=== PATIENT | female | born 1995 | race Caucasian/White ===

== ENCOUNTER 2018-04-06 12:47 | Emergency (ER) | payer OTHER ==
[2018-04-06 12:58] VITALS: BP 99/58; PULSE 78; TEMP 98.3; BMI 21.5
--- NOTE | 2018-04-06 15:42 | PDOC ---
Attending Attestation - Resident Resident Name: Etelvina Royal - ED Attending Attestation I have performed the following: I have examined & evaluated the patient, The case was reviewed & discussed with the resident, I agree w/resident's findings & plan, Exceptions are as noted - HPI HPI: 04/06/18 15:40 22y F no pmhx presents with 3 weeks of burning pain right lower quadrant radiationg to the back, associated with nausea/vomiting which had since resolved but still feeling mildly nauseus. Pt states the pain seems worse after eating and in the evenings. Notes she has been eating more healthy recently and does consume caffeine. pt dnies any fever/chills, dysuria, bpr, melena, hemetemesis, sob, cp. no recent travel or known sick contacts. she went to her PMD and was referred for an US but hasnt yet had it du to insurance issues. lmp mar 23 on exam general: no distress head: atraumatic abd soft nontender, no cmt, no rebound/guarding pulm: cta b/l card: rrr, no mrg ext: no edema neuro; no facial assymetry, moving all 4 ext spontaneously and symmetrically ddx: gall stones, kidney stones, pancreatitis, gastritis will ck labs, lipase will give pt some pepcid/maalox/zoofran US to r/o gall stones - Medical Decision Making 04/06/18 17:35 pts US is negative for acute pathology pt feels imrpoved suspect possible gastritis will give rx for H2 blockers, diet recommendations and have pt fu with PMD for reevaluation returnprecuautions were disucssed
--- NOTE | 2018-04-06 15:45 | PDOC ---
History of Present Illness - General Chief Complaint: Pain Stated Complaint: ABD PAIN Time Seen by Provider: 04/06/18 15:21 - History of Present Illness Initial Comments: 04/06/18 15:39 22 year old w/ no significant PMHX who presents with 3 weeks of intermittent R abdominal pain that is shooting to the R back. She notes that she initially had nausea and vomiting for the fist two weeks of pain, now only has pain. The pain is better when she leans forward and is worse after eating fatty foods. She is actively trying to get and is sexually active without protection. LNMP was 03/27/18. She denies any history of STD or PID. She denies pain with sexual activity. No other complaints at this time. PMHX: none PSHX: none Meds: multivitamin, Taty root supplement Allergies: noneTob: none Etoh: none Rec drugs: none Past History - Past Medical History Allergies/Adverse Reactions: Allergies Allergy/AdvReac Type Severity Reaction Status Date / Time No Known Allergies Allergy Verified 04/06/18 12:58 Home Medications: Ambulatory Orders Multivitamin [Poly-Vitamin] 1 each PO DAILY 04/06/18 COPD: No - Immunization History Immunization Up to Date: Yes - Suicide/Smoking/Psychosocial Hx Smoking History: Never smoked Have you smoked in the past 12 months: No Information on smoking cessation initiated: No Hx Alcohol Use: No Drug/Substance Use Hx: No Substance Use Type: None Review of Systems - Review of Systems Able to Perform ROS?: Yes Is the patient limited [place] proficient: No Constitutional: No: Chills, Fever HEENTM: No: Blurred Vision, Recent change in vision, Tinnitus Respiratory: No: Cough, Shortness of Breath Cardiac (ROS): No: Chest Pain, Palpitations, Chest Tightness ABD/GI: No: Constipated, Diarrhea, Nausea, Vomiting : No: Burning, Dysuria, Hematuria Musculoskeletal: Yes: Back Pain Neurological: No: Headache, Numbness, Paresthesia, Tingling *Physical Exam - Vital Signs Last Vital Signs Temp Pulse Resp BP Pulse Ox 98.3 F 78 16 99/58 100 04/06/18 12:56 04/06/18 12:56 04/06/18 12:56 04/06/18 12:56 04/06/18 12:56 - Physical Exam Comments: 04/06/18 17:20 GENERAL: Awake, alert, and fully oriented, in no acute distress HEAD: No signs of trauma, normocephalic, atraumatic EYES: EOMI, sclera anicteric, conjunctiva clear ENT: oropharynx clear without exudates. Moist mucosa NECK: Normal ROM, supple LUNGS: No distress, speaks full sentences, clear to auscultation bilaterally HEART: Regular rate and rhythm, normal S1 and S2, no murmurs, rubs or gallops, peripheral pulses normal and equal bilaterally. ABDOMEN: Soft, + RLQ tenderness, normoactive bowel sounds. No guarding, no rebound. No masses EXTREMITIES : Normal inspection, Normal range of motion, no edema. No clubbing or cyanosis. NEUROLOGICAL: Normal speech, normal gait, no focal sensorimotor deficits SKIN: Warm, Dry, normal turgor, no rashes or lesions noted ED Treatment Course - LABORATORY CBC & Chemistry Diagram: 04/06/18 16:00 04/06/18 16:00 Medical Decision Making - Medical Decision Making 04/06/18 17:21 22 year old w/ no significant PMHX who presents with 3 weeks of intermittent R abdominal pain that is shooting to the R back. Symptoms and history are concerning for cholelithiasis vs appendicitis vs pyelonephritis vs PID vs ectopic . Will assess for these etiologies. - CBC, CMP, UA, urine culture, Upreg Labs returned unremarkable *DC/Admit/Observation/Transfer Diagnosis at time of Disposition: Abdominal pain - Discharge Dispostion Disposition: HOME Condition at time of disposition: Guarded Decision to Admit order: No - Referrals Referrals: Linnette Magaña [Primary Care Provider] - - Patient Instructions Printed Discharge Instructions: DI for Gastroesophageal Reflux Disease (GERD), DI for Abdominal Pain-Adult Additional Instructions: You were seen in the ED for R sided abdominal pain. Blood work and ultrasound were done in the ED and did not show any significant findings. You did have relief of symptoms with zofran, pepcid and malox. We advise that you follow up with your primary care physician and take the prescription for pepcid that we are giving you today. - Post Discharge Activity
[2018-04-06] MEDS ORDERED: ONDANSETRON 4 MG/2 ML VIAL IVPB ONE (15:55)
[2018-04-06] MEDS ORDERED: FAMOTIDINE 20 MG/50 ML IVPB 20 MG in PREMIX 50 IVPB ONE (15:55)
[2018-04-06] MEDS ORDERED: MAG HYDROX/AL HYDROX/SIMETH -MYLANTA- ORAL SUSPENSION PO ONE (15:55)
[2018-04-06] MEDS ORDERED: ONDANSETRON 4 MG/2 ML VIAL ONE (16:01)
[2018-04-06] MEDS ORDERED: MAG HYDROX/AL HYDROX/SIMETH 30 ML UNIT-DOSE CUP ONE (16:01)
[2018-04-06] MEDS ORDERED: FAMOTIDINE 20 MG/50 ML IVPB 20 MG/50 ML MG IVPB ONE (16:01)
[2018-04-06 16:06] LABS: BASO % 0.4 % (0-2.0); EOS % 1.7 % (0-4.5); HEMATOCRIT 40.6 % (32.4-45.2); HEMOGLOBIN 13.7 GM/dL (10.7-15.3); LYMPH % 25.6 % (8-40); MCH 32.7 pg (25.7-33.7); MCHC 33.7 g/dl (32.0-36.0); MEAN CELL VOLUME 96.9 fl (80-96); MEAN PLT VOLUME 9.1 fl (7.5-11.1); MONO % 7.4 % (3.8-10.2); NEUT % 64.9 % (42.8-82.8); PLATELET COUNT 223 K/MM3 (134-434); RBC 4.19 M/mm3 (3.60-5.2); RDW 12.9 % (11.6-15.6); WHITE BLOOD COUNT 6.9 K/mm3 (4.0-10.0)
[2018-04-06 16:45] LABS: ALBUMIN 3.7 g/dl (3.4-5.0); ALK PHOS 64 U/L (45-117); ANION GAP 6 (8-16); BILIRUBIN,TOTAL 0.2 mg/dL (0.2-1.0); BLOOD UREA NITROGEN 11 mg/dL (7-18); CALCIUM 8.7 mg/dL (8.5-10.1); CHLORIDE 107 mmol/L (98-107); CO2 29 mmol/L (21-32); CREATININE 0.5 mg/dL (0.55-1.02); GLUCOSE,RANDOM 107 mg/dL (74-106); SGOT/AST 100 U/L (15-37); SGPT/ALT 53 U/L (12-78); SODIUM 142 mmol/L (136-145)
[2018-04-06 17:05] LABS: URINE APPEARANCE CLEAR; URINE BILIRUBIN NEGATIVE (<2.0 mg/dL); URINE COLOR YELLOW; URINE GLUCOSE (UA) NEGATIVE (NEGATIVE); URINE KETONE NEGATIVE (NEGATIVE); URINE LEUK ESTERASE NEGATIVE (NEGATIVE); URINE NITRITE NEGATIVE (NEGATIVE); URINE PROTEIN NEGATIVE (NEGATIVE); URINE UROBILINOGEN NEGATIVE mg/dL (0.2-1.0)
[2018-04-06 17:07] LABS: HCG,QUALITATIVE URINE NEGATIVE
[2018-04-06 17:21] LABS: EPI CELLS RARE /HPF (FEW)
== END 2018-04-06 18:27 | disposition home or self-care (01) ==
LOC: JER 12:47
PROC: 3E033GC Introduction of Other Therapeutic Substance into Peripheral Vein, Percutaneous Approach (ICD-10-PCS; principal; 2018-04-06)
PROC: 3E033GC Introduction of Other Therapeutic Substance into Peripheral Vein, Percutaneous Approach (ICD-10-PCS; 2018-04-06)
DX: R10.9 Unspecified abdominal pain (principal); M54.9 Dorsalgia, unspecified
CPT/HCPCS: 36415; 76705-TC; 80053; 81003; 81015; 83690; 84703; 85025; 96365; 96375; 99282-25

== ENCOUNTER 2018-08-27 19:32 | Emergency (ER) | payer OTHER ==
--- NOTE | 2018-08-27 19:44 | PDOC ---
Rapid Medical Evaluation Medical Evaluation: Allergies Allergy/AdvReac Type Severity Reaction Status Date / Time No Known Allergies Allergy Verified 04/06/18 12:58 08/27/18 19:39 I have performed a brief in-person evaluation of this patient. The patient presents with a chief complaint of: Body aches w/ b/l ear ache, sore throat x 2 days. No f/c Pertinent physical exam findings: Unremarkable I have ordered the following:nothing The patient will proceed to the ED for further evaluation Discharge Disposition - Diagnosis Viral syndrome - Referrals Referrals: Bird Valencia [Primary Care Provider] - - Patient Instructions - Post Discharge Activity
[2018-08-27 19:51] VITALS: PULSE 84; TEMP 98.6; BMI 21.5
--- NOTE | 2018-08-27 21:21 | PDOC ---
History of Present Illness - General Chief Complaint: Cold Symptoms Stated Complaint: COLD SYMPTOMS Time Seen by Provider: 08/27/18 19:47 - History of Present Illness Initial Comments: 08/27/18 21:18 23-year-old female with body aches and upper respiratory symptoms 1 day no comorbidities fully immunized Past History - Past Medical History Allergies/Adverse Reactions: Allergies Allergy/AdvReac Type Severity Reaction Status Date / Time No Known Allergies Allergy Verified 08/27/18 19:49 Home Medications: Ambulatory Orders NK [No Known Home Medication] 08/27/18 COPD: No - Immunization History Immunization Up to Date: Yes - Suicide/Smoking/Psychosocial Hx Smoking History: Never smoked Have you smoked in the past 12 months: No Hx Alcohol Use: No Drug/Substance Use Hx: No Substance Use Type: None Review of Systems - Review of Systems Constitutional: Yes: Chills, Malaise, Night Sweats HEENTM: Yes: Nose Congestion Respiratory: Yes: Cough *Physical Exam - Vital Signs Last Vital Signs Temp Pulse Resp BP Pulse Ox 98.6 F 84 16 101/36 L 100 08/27/18 19:49 08/27/18 19:49 08/27/18 19:49 08/27/18 19:49 08/27/18 19:49 - Physical Exam Comments: 08/27/18 21:20 HEAD: NC/AT EYES: Conjuntiva clear Ears: Canals and TM's normal NOSE: clear discharge THROAT: Moist mucous membrances, oral pharanx clear, uvula midline NECK: Supple without adenopathy CARDIAC: S1 S2 LUNGS: CTA Full and Equal breath sounds ABDOMEN: Soft NT ND MS: Full ROM in all joints without edema NEUROLOGIC: No gross sensory or motor deficits, NVID SKIN: Normal color and temperature no lesions or rashes Moderate Sedation - Procedure Monitoring Vital Signs: Procedure Monitoring Vital Signs Temperature 98.6 F 08/27/18 19:49 Pulse Rate 84 08/27/18 19:49 Respiratory Rate 16 08/27/18 19:49 Blood Pressure 101/36 L 08/27/18 19:49 O2 Sat by Pulse Oximetry (%) 100 08/27/18 19:49 *DC/Admit/Observation/Transfer Diagnosis at time of Disposition: Viral syndrome, Upper respiratory infection - Discharge Dispostion Disposition: HOME Condition at time of disposition: Stable Decision to Admit order: No - Referrals Referrals: Asabreann,Bird [Primary Care Provider] - - Patient Instructions Printed Discharge Instructions: DI for Viral Upper Respiratory Infection -- Adult Additional Instructions: Return to the emergency room should symptoms worsen or go unresolved. Please follow up with her primary care physician in one to 2 days for further evaluation and treatment options. Tylenol Motrin as directed for body aches and fever - Post Discharge Activity
[2018-08-27 22:02] VITALS: BP 121/55
== END 2018-08-27 22:02 | disposition home or self-care (01) ==
LOC: JERFT 19:32 → JER 19:32 → JERFT 22:02
DX: J06.9 Acute upper respiratory infection, unspecified (principal); B34.9 Viral infection, unspecified
CPT/HCPCS: 87804; 99281-25

== ENCOUNTER 2018-12-30 04:08 | Emergency (ER) | payer SELFPAY ==
--- NOTE | 2018-12-30 04:14 | PDOC ---
History of Present Illness - General Stated Complaint: PALPATATIONS Time Seen by Provider: 12/30/18 04:14 History Source: Patient Exam Limitations: No Limitations - History of Present Illness Initial Comments: 23 yo F w a pmh of a hiatal hernia presents to the ER with acute onset palpitations, shortness of breath and right sided chest pain which began tonight around 9 pm when she took an energy supplement prior to going to the gym. She says she doesn't know the exact name of the supplement but she didn't come to the hospital originally bc she thought the discomfort would go away. She says it has been getting mildly worse since it began. She worked out her legs at the gym tonight and did no upper body workouts. She says she has been feeling nauseous all night as well and felt like she wanted to vomit but did not actually vomit. She also thinks she has been more sweaty than usual this evening. She reports that she also experienced 3 episodes of watery diarrhea today as well. LMP: end of November - The patient is sexually active with one male and does not use any form of contraception. She denies using condoms and says she is not on any form of control. She has not been tested for gonorrhea or chlamydia in many years and would like to be tested here tonight. PCP: Bird Valencia PSH: None reported Social Hx: Denies drinking, smoking, or other substance usage. Allergies: NKA, NKDA Past History - Past Medical History Allergies/Adverse Reactions: Allergies Allergy/AdvReac Type Severity Reaction Status Date / Time No Known Allergies Allergy Verified 12/30/18 04:21 Home Medications: Ambulatory Orders NK [No Known Home Medication] 08/27/18 COPD: No - Immunization History Immunization Up to Date: Yes - Suicide/Smoking/Psychosocial Hx Smoking History: Never smoked Have you smoked in the past 12 months: No Hx Alcohol Use: No Drug/Substance Use Hx: No Substance Use Type: None Review of Systems - Review of Systems Able to Perform ROS?: No Comments:: CONSTITUTIONAL: Absent: fever, no chills, no fatigue EYES: Absent: visual changes ENT: Absent: ear pain, no sore throat CARDIOVASCULAR: Present: Palpitations, chest pain RESPIRATORY: Present: SOB Absent: cough GI: Present: Nausea, diarrhea Absent: abdominal pain, no vomiting, no constipation GENITOURINARY: Absent: dysuria, no frequency, no hematuria MUSKULOSKELETAL: Absent: back pain, no arthralgia, no myalgia SKIN: Absent: rash NEURO: Absent: headache *Physical Exam - Physical Exam Comments: GENERAL: Well-appearing, well-nourished. No apparent distress. HEENT: Normocephalic, atraumatic. PERRL, EOM intact. CARDIOVASCULAR: Tachycardic rate. Normal S1, S2. Regular rhythm. PULMONARY: No evidence of respiratory distress. Lungs clear to auscultation bilaterally. ABDOMEN: Soft, non-distended, non-tender. EXTREMITIES: Normal ROM in all four extremities. No gross deformities. SKIN: Warm, dry. No rash NEUROLOGICAL: No focal neurological deficits. ED Treatment Course - LABORATORY CBC & Chemistry Diagram: 12/30/18 04:42 12/30/18 04:42 Medical Decision Making - Medical Decision Making 23 yo F w a pmh of a hiatal hernia presents to the ER with acute onset palpitations, shortness of breath and right sided chest pain which began tonight around 9 pm when she took an energy supplement prior to going to the gym. She says she doesn't know the exact name of the supplement but she didn't come to the hospital originally bc she thought the discomfort would go away. She says it has been getting mildly worse since it began. She worked out her legs at the gym tonight and did no upper body workouts. She says she has been feeling nauseous all night as well and felt like she wanted to vomit but did not actually vomit. She also thinks she has been more sweaty than usual this evening. She reports that she also experienced 3 episodes of watery diarrhea today as well. LMP: end of November - The patient is sexually active with one male and does not use any form of contraception. She denies using condoms and says she is not on any form of control. She has not been tested for gonorrhea or chlamydia in many years and would like to be tested here tonight. VS: Tachycardic, otherwise wnl DDx IBNLT: Work out supplement related effect, ACS/SC, pneumothorax, PNA, MSK chest pain, gastroenteritis, costochondritis Plan: Labs, Urine, Ekg, CXR, IV hydration, zofran, re-assess. Patient no longer feels nauseous or has shortness of breath. CXR unremarkable. EKG normal sinus Labs normal. Will DC patient with supportive care, PCP fu, and return precautions. Sending urine sample for patient for gonorrea and chlamydia - Patient notified she will get a call back in 4 days time with results. *DC/Admit/Observation/Transfer Diagnosis at time of Disposition: Palpitations - Discharge Dispostion Disposition: HOME Condition at time of disposition: Stable Decision to Admit order: No - Referrals Referrals: Bird Valencia [Primary Care Provider] - - Patient Instructions Printed Discharge Instructions: DI for Palpitations Additional Instructions: You came into the ER with palpitations. This was likely a side effect of your energy supplement. Please try to limit taking these supplements in the future. Drink plenty of fluids. Take motrin/ibuprofen/advil as needed for pain control. Please make sure to schedule a follow up appointment with your primary care doctor in the next 3 to 5 days to make sure you are getting better. Come back to the ER if your pain worsens, you have shortness of breath or difficulty breathing, or have any other new or worsening concerns. Thank you for coming to the [facility] ER. We hope you feel better soon! Print Language: GABONESE - Post Discharge Activity
[2018-12-30 04:21] VITALS: BP 123/82; TEMP 98.5; BMI 21.5
--- NOTE | 2018-12-30 04:32 | PDOC ---
Attending Attestation - Resident Resident Name: Marcelo Mark - ED Attending Attestation I have performed the following: I have examined & evaluated the patient, The case was reviewed & discussed with the resident, I agree w/resident's findings & plan, Exceptions are as noted - HPI HPI: 12/30/18 05:21 23y F no pmhx presents with complaint of palpitations .Pt states she was using a pre workout energy drink, and then since then has been feeling palptiations in her chest. Also endorses couple of episoes of diarrhea. Pt notes some nausea earlier that resolved. Pt julian any current cp, sob, lightheadedness, no melena /bpr, dysuria, frequency, abd pain, back pain. No trauma. Pt has had this energy drink in the past and has had palpitations but resolved spontenously. On exam: Genera: no acute distress HEENT: dry mucus membranes PULM: CTA b/l, no wheezing/rales Card: slightly tachycardic, no murmers suspect dehydration combined with stimulants in the energy drink will give fluids will ck basic labs to r/o anemia, metabolic dernagements ekg to screen for arrthima - Physicial Exam PE: 01/01/19 07:22 see above - Medical Decision Making 01/01/19 07:22 see abve Heart Score/ECG Review - ECG Impressions Comment:: 12/30/18 05:26 Twelve-lead EKG was performed and reviewed by me. There is normal sinus rhythm with a normal rate. Rate of 96 The axis is normal. The intervals are normal. There is normal R wave progression There are no ST or T wave abnormalities. Impression: Normal twelve-lead EKG
[2018-12-30] MEDS ORDERED: ONDANSETRON 4 MG/2 ML VIAL IVPUSH ONE (04:38)
[2018-12-30] MEDS ORDERED: IBUPROFEN 400 MG TABLET (FP) PO ONE ×2 (04:38→04:57)
[2018-12-30] MEDS ORDERED: SODIUM CHLORIDE 0.9% 500 ML INFUS.BAG IV ONE (04:38)
[2018-12-30 04:51] LABS: BASO % 0.4 % (0-2.0); EOS % 0.1 % (0-4.5); HEMATOCRIT 40.1 % (32.4-45.2); HEMOGLOBIN 13.8 GM/dL (10.7-15.3); LYMPH % 18.2 % (8-40); MCH 33.7 pg (25.7-33.7); MCHC 34.5 g/dl (32.0-36.0); MEAN CELL VOLUME 97.6 fl (80-96); MEAN PLT VOLUME 9.1 fl (7.5-11.1); MONO % 7.1 % (3.8-10.2); NEUT % 74.2 % (42.8-82.8); PLATELET COUNT 242 K/MM3 (134-434); RBC 4.11 M/mm3 (3.60-5.2); RDW 12.9 % (11.6-15.6)
[2018-12-30 04:55] LABS: HCG,QUALITATIVE URINE Negative
[2018-12-30] MEDS ORDERED: ONDANSETRON 4 MG/2 ML VIAL ONE (04:57)
[2018-12-30 05:08] LABS: URINE APPEARANCE CLEAR; URINE BILIRUBIN NEGATIVE (NEGATIVE); URINE COLOR YELLOW; URINE GLUCOSE (UA) NEGATIVE (NEGATIVE); URINE KETONE 1+ (NEGATIVE); URINE LEUK ESTERASE NEGATIVE (NEGATIVE); URINE NITRITE NEGATIVE (NEGATIVE); URINE PROTEIN NEGATIVE (NEGATIVE); URINE UROBILINOGEN 0.2 mg/dL (0.2-1.0)
[2018-12-30 05:20] LABS: ALBUMIN 4.2 g/dl (3.4-5.0); ALK PHOS 83 U/L (45-117); ANION GAP 6 MMOL/L (8-16); BILIRUBIN,TOTAL 0.3 mg/dL (0.2-1); BLOOD UREA NITROGEN 10 mg/dL (7-18); CALCIUM 8.8 mg/dL (8.5-10.1); CHLORIDE 106 mmol/L (98-107); CO2 24 mmol/L (21-32); CREATININE 0.6 mg/dL (0.55-1.3); GLUCOSE,RANDOM 99 mg/dL (74-106); POTASSIUM 4.2 mmol/L (3.5-5.1); SGOT/AST 34 U/L (15-37); SGPT/ALT 29 U/L (13-61); SODIUM 136 mmol/L (136-145)
[2018-12-30 05:44] VITALS: PULSE 94
--- NOTE | 2018-12-30 11:09 | EKG ---
Test Reason : Blood Pressure : / mmHG Vent. Rate : 097 BPM Atrial Rate : 100 BPM P-R Int : 134 ms QRS Dur : 076 ms QT Int : 338 ms P-R-T Axes : 000 074 044 degrees QTc Int : 429 ms NORMAL SINUS RHYTHM NORMAL ECG NO PREVIOUS ECGS AVAILABLE Confirmed by MD Montserrat, Henrique ([id number]) on 12/30/2018 11:08:56 AM Referred By: Osman REEVES Confirmed By:Henrique Mariano MD
== END 2018-12-30 06:18 | disposition home or self-care (01) ==
LOC: JER 04:08
DX: R00.2 Palpitations (principal); Z11.3 Encounter for screening for infections with a predominantly sexual mode of transmission
CPT/HCPCS: 36415; 71046-TC-FY; 80053; 81003; 84484; 84703; 85025; 87491; 87591; 93005; 93010; 99284-25

== ENCOUNTER 2019-04-07 15:25 | Emergency (ER) | payer SELFPAY ==
[2019-04-07 15:31] VITALS: BMI 21.9
[2019-04-07] MEDS ORDERED: ONDANSETRON 4 MG/2 ML VIAL IVPUSH ONE (16:09)
[2019-04-07] MEDS ORDERED: SODIUM CHLORIDE 0.9% 500 ML INFUS.BAG IV ONE (16:09)
--- NOTE | 2019-04-07 16:13 | PDOC ---
History of Present Illness - General Chief Complaint: Pain Stated Complaint: ABD PAIN - History of Present Illness Initial Comments: Germaine Garcia is a 23yo otherwise healthy woman who presents reporting painful menstrual cramps. She states that on the first day of her period, she always has severe cramps and often vomiting and headache. Today she reports that she has 8/10 pain as well as 4 episodes of NBNB vomiting this morning. She says that if she takes ibuprofen her symptoms resolve completely, but she did not have any at home. She was walking to the store to buy Advil when she started to feel as though she was going to fall, at which point she called an ambulance. Ms Garcia states that her pain is 8/10, across her lower abdomen, and identical to her normal menstrual cramps. She denies heavy vaginal bleeding, other vaginal discharge, fever, chills, diarrhea, upper abdominal pain, back pain or other recent symptoms. She is not currently sexually active, though has been in the past, and does not believe she could be currently. She has no concerns for STI's. Past History - Past Medical History Allergies/Adverse Reactions: Allergies Allergy/AdvReac Type Severity Reaction Status Date / Time No Known Allergies Allergy Verified 04/07/19 15:29 Home Medications: Ambulatory Orders NK [No Known Home Medication] 08/27/18 COPD: No - Immunization History Immunization Up to Date: Yes - Suicide/Smoking/Psychosocial Hx Smoking History: Never smoked Have you smoked in the past 12 months: No Hx Alcohol Use: No Drug/Substance Use Hx: No Substance Use Type: None Review of Systems - Review of Systems Comments:: General: No fevers, no chills, no weight or appetite change, no malaise HEENT: No changes in vision, no changes in hearing, no congestion, no sore throat CV: No chest pain, no palpitations, no LE edema Pulm: No SOB, no cough, no wheezing GI: No nausea or vomiting, no change in bowel habits, no melena : No frequency, no urgency, no dysuria. See HPI Musc: No back pain, no joint swelling, no recent injury Skin: No rash, no lesions, no erythema Endo: No excessive thirst, no heat/cold intolerance Heme: No unusual bruising or bleeding, no swollen glands Neuro: No syncope, no numbness/tingling, no focal weakness Vasc: No claudication Psych: No recent change in mood, no SI or HI *Physical Exam - Vital Signs Last Vital Signs Temp Pulse Resp BP Pulse Ox 78 18 106/60 100 04/07/19 15:30 04/07/19 15:30 04/07/19 15:30 04/07/19 15:30 - Physical Exam Comments: General: Comfortable, no acute distress HEENT: PERRL, EOMI, MMM, voice normal Cards: RRR, no murmur appreciated Pulm: Comfortable on room air, clear to auscultation bilaterally Abd: Soft, nontender, nondistended : Normal external genitalia, moderate dark blood in vaginal canal w/o clots, discomfort with exam but no focal adnexal or cervical motion tenderness. Os closed. Ext: Atraumatic. No LE edema. ROM intact Vasc: Extremities WWP Skin: Normal color, no rashes or lesions Neuro: A&Ox3, CN grossly intact, normal speech, motor/sensory grossly intact and symmetric Psych: Mood appropriate to situation ED Treatment Course - LABORATORY CBC & Chemistry Diagram: 04/07/19 16:50 04/07/19 16:50 Medical Decision Making - Medical Decision Making 04/07/19 16:10 Germaine Garcia is a 23yo otherwise healthy woman who presents reporting painful menstrual cramps, typical of her normal cramps. She presented to the ED as she states that they normally resolve with ibuprofen, but she did not have any at home and was afraid she would fall due to the pain. She does not believe she is but is not sure. - Most likely menstrual cramps, but cannot exclude ectopic , ovarian pathology, early miscarriage, PID. Less likely UTi - CBC, CMP, UA, urine preg, urine culture, GC/chlamydia - 1L NS, zofran. Toradol pending negative test 04/07/19 17:26 - UA negative - negative - Toradol ordered for pain - remainder of labs pending 04/07/19 18:17 - Labs unremarkable, slight leukocytosis could be reactive as she reports vomiting - Requesting to be discharged, will give OB follow up. Discharge instructions written by Dr Gomez, please see separate note. Discussed with Dr Kaykay Sewell PGY2 *DC/Admit/Observation/Transfer Diagnosis at time of Disposition: Vaginal bleeding Abdominal pain Qualifiers: Abdominal location: lower abdomen, unspecified Qualified Code(s): R10.30 - Lower abdominal pain, unspecified - Discharge Dispostion Condition at time of disposition: Stable Decision to Admit order: No - Referrals Schedule a call back: Please call Referrals: Clifton Looney MD [Staff Physician] - - Patient Instructions Printed Discharge Instructions: DI for Vaginal Bleeding Additional Instructions: 1) Please follow-up with your primary care doctor in the next 2-3 days. Please call tomorrow to schedule a follow up appointment. If you cannot follow up with your doctor within 1 week please return to the Emergency Department for any urgent issues. 2) Your laboratory results were normal here in the ER. Please make sure you follow up with your [employer] physician. 3) If you have any worsening of symptoms or any other concerns please return to the ER immediately. Return if worsening symptoms including fevers, headache, vomiting, visual or hearing disturbances, abdominal pain, chest pain, shortness of breath, syncope, dehydration, inability to take things by mouth/vomiting, altered mental status, or worsening concerning symptoms. 4) Please continue taking your home medications as directed. Side effects may include upset stomach, abdominal pain, vomiting, or diarrhea. Do not drink alcohol with your medications. - Post Discharge Activity
[2019-04-07] MEDS ORDERED: ONDANSETRON 4 MG/2 ML VIAL ONE (16:58)
[2019-04-07 17:09] LABS: BASO % 0.1 % (0-2.0); EOS % 0.1 % (0-4.5); HEMATOCRIT 42.2 % (32.4-45.2); LYMPH % 6.5 % (8-40); MCH 32.8 pg (25.7-33.7); MCHC 33.2 g/dl (32.0-36.0); MEAN CELL VOLUME 98.7 fl (80-96); MEAN PLT VOLUME 9.1 fl (7.5-11.1); MONO % 4.9 % (3.8-10.2); NEUT % 88.4 % (42.8-82.8); PLATELET COUNT 249 K/MM3 (134-434); RBC 4.27 M/mm3 (3.60-5.2); RDW 13.1 % (11.6-15.6); WHITE BLOOD COUNT 13.5 K/mm3 (4.0-10.0)
[2019-04-07 17:11] LABS: EPI CELLS 5.3 /HPF (0-5/HPF); HYALINE CASTS 9 /lpf (0-8); PH,URINE 7.5 (5.0-8.0); URINE APPEARANCE CLEAR; URINE BACTERIA 37.1 /hpf (NEGATIVE); URINE BILIRUBIN NEGATIVE (NEGATIVE); URINE COLOR YELLOW; URINE GLUCOSE (UA) NEGATIVE (NEGATIVE); URINE KETONE 3+ (NEGATIVE); URINE LEUK ESTERASE NEGATIVE (NEGATIVE); URINE NITRITE NEGATIVE (NEGATIVE); URINE PROTEIN NEGATIVE (NEGATIVE); URINE RBC 3 /hpf (0-4); URINE WBC 1 /hpf (0-5)
[2019-04-07] MEDS ORDERED: KETOROLAC TROMETHAMINE 30 MG/1 ML VIAL IVPUSH ONE (17:29)
[2019-04-07 17:36] LABS: ALBUMIN 4.1 g/dl (3.4-5.0); BILIRUBIN,TOTAL 0.4 mg/dL (0.2-1); BLOOD UREA NITROGEN 10.9 mg/dL (7-18); CALCIUM 8.9 mg/dL (8.5-10.1); CREATININE 0.7 mg/dL (0.55-1.3); POTASSIUM 3.6 mmol/L (3.5-5.1); TOT PROT 7.5 g/dl (6.4-8.2)
--- NOTE | 2019-04-07 18:04 | PDOC ---
*Physical Exam - Vital Signs Last Vital Signs Temp Pulse Resp BP Pulse Ox 78 18 106/60 100 04/07/19 15:30 04/07/19 15:30 04/07/19 15:30 04/07/19 15:30 ED Treatment Course - LABORATORY CBC & Chemistry Diagram: 04/07/19 16:50 04/07/19 16:50 - ADDITIONAL ORDERS Additional order review: Laboratory Results 04/07/19 04/07/19 04/07/19 16:50 16:50 16:50 Sodium 139 Potassium 3.6 Chloride 108 H Carbon Dioxide 24 Anion Gap 7 L BUN 10.9 Creatinine 0.7 Est GFR (CKD-EPI)AfAm 141.54 Est GFR (CKD-EPI)NonAf 122.12 Random Glucose 91 Calcium 8.9 Total Bilirubin 0.4 AST 12 L ALT 18 Alkaline Phosphatase 70 Total Protein 7.5 Albumin 4.1 Urine Color Yellow Urine Appearance Clear Urine pH 7.5 D Ur Specific [place] 1.027 Urine Protein Negative Urine Glucose (UA) Negative Urine Ketones 3+ H Urine Blood 3+ H Urine Nitrite Negative Urine Bilirubin Negative Urine Urobilinogen 1.0 Ur Leukocyte Esterase Negative Urine WBC (Auto) 1 Urine RBC (Auto) 3 Urine Casts (Auto) 9 U Epithel Cells (Auto) 5.3 Urine Bacteria (Auto) 37.1 Urine HCG, Qual Negative 04/07/19 16:50 RBC 4.27 MCV 98.7 H MCHC 33.2 RDW 13.1 MPV 9.1 Neutrophils % 88.4 H Lymphocytes % 6.5 L D Monocytes % 4.9 Eosinophils % 0.1 Basophils % 0.1 - Medications Given in the ED: ED Medications Discontinued Medications Generic Name Dose Route Start Last Admin Trade Name Freq PRN Reason Stop Dose Admin Ondansetron HCl 4 mg 04/07/19 16:09 04/07/19 17:02 Zofran Injection IVPUSH 04/07/19 16:10 4 mg ONCE ONE Administration Sodium Chloride 1,000 ml 04/07/19 16:09 04/07/19 17:10 Normal Saline - IV 04/07/19 16:10 1,000 ml ONCE ONE Administration *DC/Admit/Observation/Transfer Diagnosis at time of Disposition: Vaginal bleeding Abdominal pain Qualifiers: Abdominal location: unspecified location Qualified Code(s): R10.9 - Unspecified abdominal pain - Discharge Dispostion Disposition: HOME Condition at time of disposition: Stable Decision to Admit order: No - Referrals Referrals: Clifton Looney MD [Staff Physician] - - Patient Instructions Printed Discharge Instructions: DI for Vaginal Bleeding Additional Instructions: 1) Please follow-up with your primary care doctor in the next 2-3 days. Please call tomorrow to schedule a follow up appointment. If you cannot follow up with your doctor within 1 week please return to the Emergency Department for any urgent issues. 2) Your laboratory results were normal here in the ER. Please make sure you follow up with your [facility] [employer] physician. 3) If you have any worsening of symptoms or any other concerns please return to the ER immediately. Return if worsening symptoms including fevers, headache, vomiting, visual or hearing disturbances, abdominal pain, chest pain, shortness of breath, syncope, dehydration, inability to take things by mouth/vomiting, altered mental status, or worsening concerning symptoms. 4) Please continue taking your home medications as directed. Side effects may include upset stomach, abdominal pain, vomiting, or diarrhea. Do not drink alcohol with your medications. - Post Discharge Activity
[2019-04-07] MEDS ORDERED: KETOROLAC TROMETHAMINE 30 MG/1 ML VIAL ONE (18:09)
[2019-04-07 18:24] VITALS: BP 105/58; PULSE 86
--- NOTE | 2019-04-07 18:58 | PDOC ---
Documentation entered by Luis Motley SCRIBE, acting as scribe for Rosibel Mccracken MD. Rosibel Mccracken MD: This documentation has been prepared by the rigoibe, Luis Motley SCRIBE, under my direction and personally reviewed by me in its entirety. I confirm that the documentation accurately reflects all work, treatment, procedures, and medical decision making performed by me. Attending Attestation - Resident Resident Name: Flora Sewell - HPI HPI: 04/07/19 17:53 The patient is a 23 year old female with no significant past medical history who presents to the emergency department with painful menstrual cramps today. The patient states that she started the first day of her period with severe cramps and often vomiting and headaches he reports that she has 8/10 pain as well as 4 episodes of NBNB vomiting this morning. She says that if she takes ibuprofen her symptoms resolve completely, but she did not have any at home. She was walking to the store to buy Advil when she started to feel as though she was going to fall, at which point she called an ambulance. She denies any sexually activity or possible . The patient denies any other symptoms or complaints. - Physicial Exam PE: 04/07/19 17:53 GENERAL: Awake, alert, and fully oriented, in no acute distress HEAD: No signs of trauma EYES: PERRLA, EOMI, sclera anicteric, conjunctiva clear ENT: Auricles normal inspection, hearing grossly normal, nares patent, oropharynx clear without exudates. Moist mucosa NECK: Normal ROM, supple, no lymphadenopathy, JVD, or masses LUNGS: Breath sounds equal, clear to auscultation bilaterally. No wheezes, and no crackles HEART: Regular rate and rhythm, normal S1 and S2, no murmurs, rubs or gallops ABDOMEN: Soft, nontender, normoactive bowel sounds. No guarding, no rebound. No masses EXTREMITIES: Normal range of motion, no edema. No clubbing or cyanosis. No cords, erythema, or tenderness NEUROLOGICAL: Cranial nerves II through XII grossly intact. Normal speech, normal gait SKIN: Warm, Dry, normal turgor, no rashes or lesions noted. - Medical Decision Making 04/07/19 18:28 Pt presents to the ED complaining of pelvic pain that is similar to, but worse than, her chronic menstrual pain. Also complains of several episodes of nausea and vomiting today. Pelvic exam is unremarkable. Symptoms are completely resolved after toradol and zofran. Abdomen is non tender. Most likely dysmenorrhea. Will discharge home. 04/07/19 18:37
== END 2019-04-07 18:40 | disposition home or self-care (01) ==
LOC: JER 15:25
PROC: 3E033GC Introduction of Other Therapeutic Substance into Peripheral Vein, Percutaneous Approach (ICD-10-PCS; principal; 2019-04-07)
PROC: 3E0337Z Introduction of Electrolytic and Water Balance Substance into Peripheral Vein, Percutaneous Approach (ICD-10-PCS; 2019-04-07)
DX: N93.9 Abnormal uterine and vaginal bleeding, unspecified (principal); R10.30 Lower abdominal pain, unspecified
CPT/HCPCS: 36415; 80053; 81003; 84703; 85025; 87077; 87086; 87491; 87591; 99283-25

== ENCOUNTER 2020-07-01 07:18 | Emergency (ER) | payer OTHER ==
[2020-07-01 07:29] VITALS: TEMP 98.6; BMI 21.9
--- NOTE | 2020-07-01 07:47 | PDOC ---
History of Present Illness - General Chief Complaint: Allergic Reaction Stated Complaint: ALLERGIC REACTION Time Seen by Provider: 07/01/20 07:47 - History of Present Illness Initial Comments: 07/01/20 07:47 HPI: This is a 25 y/o female with no PMH presenting the ED complaining of a diffuse itchy rash, throat tightness, and lower lip swelling that woke her up from sleep this morning. She denies any allergies, or any previous allergic reactions. States that she ate yogurt, cracker, and a banana 7 hours ago and went to sleep feeling fine. None of those foods are new except for the yogurt that she has been eating for the past two weeks. She also went to [facility] yesterday for an unrelated issue, but denies being given any medications while she was there. She denies any new products, shortness of breath, pooling of saliva, lightheadedness, or chest pain. ROS: GENERAL/CONSTITUTIONAL: No fever/chills, diaphoresis, or weakness. HEENT: No change in vision. No itchy watery eyes. Yes throat tightness CARDIOVASCULAR: No chest pain, palpitations or peripheral edema RESPIRATORY: No shortness of breath, dyspnea with exertio, wheezing, or chest ti ghtness GASTROINTESTINAL: No abdominal pain, nausea, vomiting GENITOURINARY: No dysuria, frequency MUSCULOSKELETAL: No joint or muscle swelling or pain. SKIN: Diffuse itchy maculopapular rash. Lower lip swelling NEUROLOGIC: No headache, vertigo, focal weakness, loss of consciousness, or change in strength/sensation. HEMATOLOGIC/LYMPHATIC: No anemia, easy bleeding, or history of blood clots. PMH: Denied PSx: Denied Social Hx: Denied etoh, tobacco, drug use Meds: See nurse note Allergies: See nurse note PE: GENERAL: Awake, alert, and fully oriented, in no acute distress. Patient is laying in bed, non-toxic. Patient is not in respiratory distress. She is able to speak in full sentences. HEENT: Normocephalic, atraumatic. PERRLA, EOMI. No conjunctival pallor. Moist mucous membranes. No visible oropharyngeal swelling. Lower lip edema. NECK: Normal ROM and supple. No lymphadenopathy, JVD, or masses. CARDIOVASCULAR: Regular rate and rhythm, normal S1 and S2, no murmurs, rubs or gallops PULMONARY: No respiratory distress. Breath sounds equal, clear to auscultation bilaterally. No wheezes, rales or rhonchi. ABDOMEN: Soft, nontender, normoactive bowel sounds. EXTREMITIES: Normal range of motion, no edema NEUROLOGICAL: Cranial nerves II through XII grossly intact. Normal speech. SKIN: Warm, Dry, normal turgor. Maculopapular rash on forehead, upper back, arms, abdomen, thighs. MDM: 07/01/20 08:10 This is a 25 y/o female with no PMH presenting the ED complaining of a diffuse itchy rash, throat tightness, and lower lip swelling that woke her up from sleep this morning. - No respiratory distress. Patient is saturating at 98% on room air. - Hemodynamically stable. - No known allergies. No new foods, medications, products - Given lip and throat involvement will administer methylprednisolone as well as benadryl and famotidine. Vital Signs Temp Pulse Resp BP Pulse Ox 98.6 F 90 18 115/65 100 07/01/20 07:25 07/01/20 07:25 07/01/20 07:25 07/01/20 07:25 07/01/20 07:25 07/01/20 08:45 - Patient reports improvement in symptoms. - Asking for food. 07/01/20 09:00 - Lungs CTA bilaterally - Rash improved. No longer with lower lip swelling. - Patient remained hemodynamically stable throughout ED stay. - Patient stable to d/c with referral for lead data entry operator, PCP, and return precautions. - 50mg prednisone x3 days and epipen sent to pharmacy. Patient understands how to use the epipen. Past History - Medical History Allergies/Adverse Reactions: Allergies Allergy/AdvReac Type Severity Reaction Status Date / Time No Known Allergies Allergy Verified 07/01/20 07:24 Home Medications: Ambulatory Orders EPINEPHrine (EPI-PEN 0.3MG) [Epipen 0.3MG -] 0.3 mg IM ASDIR #2 pens 07/01/20 Prednisone [Prednisone 50 MG TABLETS] 50 mg PO DAILY #3 tablet 07/01/20 COPD: No - Reproductive History Is Patient Now?: No - Immunization History Immunization Up to Date: Yes - Psycho-Social/Smoking History Smoking History: Never smoked Have you smoked in the past 12 months: No - Substance Abuse Hx (Audit-C & DAST Scrn) How often the patient has a drink containing alcohol: Never Score: In Men: 4 or > Positive; In Women: 3 or > Positive: 0 Screen Result (Pos requires Nsg. Audit-10AR): Negative In the last yr the pt used illegal drug/Rx for NonMed reason: No Score: Yes response is considered Positive: 0 Screen Result (Positive result requires Nsg. DAST-10): Negative *Physical Exam - Vital Signs Last Vital Signs Temp Pulse Resp BP Pulse Ox 98.6 F 90 18 115/65 100 07/01/20 07:25 07/01/20 07:25 07/01/20 07:25 07/01/20 07:25 07/01/20 07:25 Discharge - Discharge Information Problems reviewed: Yes Clinical Impression/Diagnosis: Rash, Lip swelling Allergic reaction Qualifiers: Encounter type: initial encounter Qualified Code(s): T78.40XA - Allergy, unspecified, initial encounter Disposition: HOME - Additional Discharge Information Prescriptions: EPINEPHrine (EPI-PEN 0.3MG) [Epipen 0.3MG -] 0.3 mg IM ASDIR #2 pens Prednisone [Prednisone 50 MG TABLETS] 50 mg PO DAILY #3 tablet - Follow up/Referral Referrals: [facility] [Provider Group] Juvnecio Grace MD [Staff Physician] - Jonny Joiner MD [Staff Physician] - Jordin Gómez MD [Staff Physician] - - Patient Discharge Instructions Additional Instructions: Please follow-up with your primary doctor(s) within 2-3 days. We recommend you see an [facility] Walker - we have given you a list of allergists (check with your insurance before making any appointments). We have also referred you to the [facility] so you can establish yourself with a primary care physician. We have sent a prescription for an Epi-Pen to your pharmacy. Please pick it up as soon as possible. Always carry this with you. In the Emergency Department today, we spoke about how to use the Epi-Pen only in the event of a severe allergic reaction with trouble breathing or throat swelling. You must go to the hospital right away if you ever use the Epi-Pen. Remember that they every year so you should have your doctor write a new prescription yearly We have sent a prescription for prednisone to your pharmacy. Please pick it up as soon as possible and use as directed (50mg once daily for 3 more days). Take Benadryl (also called diphenhydramine) 25mg every 6-8 hours as needed for further allergy symptoms (can be purchased without a prescription) - please note that Benadryl often causes drowsiness so please do not drive, make important decisions or operate machinery until you know how it will affect you. Please return to the Emergency Department right away if you have any worsening or new shortness of breath, changes in your voice, tightness/itching in your mouth/throat, swelling, severe hives, chest pain, high fever. There is a very small chance of a recurrence of the allergic reaction, typically in the next 24 hours. If you see the same symptoms (rash, trouble breathing, vomiting, etc) return, come back to the Emergency Department immediately. - Post Discharge Activity
--- OUTSIDE RECORDS SUMMARY | 2020-07-01 07:53 | XMS ---
:1995 Author Organization [facility] Care Team Providers Name Role Phone ED STAFF PHYSICIANBRIAN Unavailable Unavailable PALLI HASEEB Byrd Unavailable Unavailable ED STAFF PHYSICIAN Unavailable Unavailable ED STAFF PHYSICIAN, STAFF Unavailable Unavailable KAYLAN KRAMER Unavailable KAYALN KRAMER Unavailable ED STAFF PHYSICIANJAHAIRA Unavailable Unavailable ED STAFF PHYSICIANKIRAN Unavailable Unavailable ANDREA BRUNER MD Unavailable Unavailable ANDREA BRUNER MD Unavailable Unavailable ANDREA BRUNER MD Unavailable Unavailable ANDREA BRUNER MD Unavailable Unavailable ANDREA BRUNER MD Unavailable Unavailable ANDREA BRUNER MD Unavailable Unavailable ANDREA BRUNER MD Unavailable Unavailable ANDREA BRUNER MD Unavailable Unavailable ANDREA BRUNER MD Unavailable Unavailable ANDREA BRUNER MD Unavailable Unavailable ANDREA BRUNER MD Unavailable Unavailable Re-disclosure Warning The records that you are about to access may contain information from federally- assisted alcohol or drug abuse programs. If such information is present, then the following federally mandated warning applies: This information has been disclosed to you from records protected by federal confidentiality rules (42 CFR part 2). The federal rules prohibit you from making any further disclosure of this information unless further disclosure is expressly permitted by the written consent of the person to whom it pertains or as otherwise permitted by 42 CFR part 2. A general authorization for the release of medical or other information is NOT sufficient for this purpose. The Federal rules restrict any use of the information to criminally investigate or prosecute any alcohol or drug abuse patient.The records that you are about to access may contain highly sensitive health information, the redisclosure of which is protected by Article 27-F of the [facility] Public Health law. If you continue you may haveaccess to information: Regarding HIV / AIDS; Provided by facilities licensed or operated by the [facility] Office of Mental Health; or Provided by the [facility] Office for People With Developmental Disabilities. If such information is present, then the following [facility] mandated warning applies: This information has been disclosed to you from confidential records which are protected by state law. State law prohibits you from making any further disclosure of this information without the specific written consent of the person to whom it pertains, or as otherwise permitted by law. Any unauthorized further disclosure in violation of state law may result in a fine or nursing home sentence or both. A general authorization for the release of medical or other information is NOT sufficient authorization for further disclosure. Encounters Encounter Providers Location Date Indications Data Source(s ) Emergency Attender: JAHAIRA GARCIA H 04/01/2020 [facility] STAFF 04:54:00 PM EDT Medical C enter PHYSICIANAttender: - 04/01/2020 STAFF ED STAFF 09:29:00 PM EDT PHYSICIANAdmitter: JAHAIRA ED STAFF PHYSICIAN Patient discharged. Emergency Attender: SAVI Ayoub 03/21/2020 01:45:00 PM [facility] Jade: BRIAN ED STAFF EDT - 03/21/2020 [facility] PHYSICIANAttender: STAFF ED 05:38:00 PM EDT STAFF PHYSICIANAdmitter: SAVI Byrd Patient discharged. Emergency Attender: KIRAN GARCIA STAFF H 11/04/2019 09:45:00 AM [facility] PHYSICIANAttender: STAFF ED EST - 11/04/2019 [facility] STAFF PHYSICIANAdmitter: KIRAN 01:26:00 PM EST ED STAFF PHYSICIAN Patient discharged. Emergency Attender: ED STAFF H 09/04/2019 03:41:00 PM [facility] PHYSICIANAttender: STAFF ED EST - 09/04/2019 [facility] Center STAFF PHYSICIANAdmitter: ED 07:13:00 PM EST STAFF PHYSICIAN Patient discharged. Outpatient<td Attender: Marquis 09/03/2019 [place] ID="encounterTypeDescriptionID0">OFFICE [facility] 12:00:0 0 PM ([place] VISIT</td><td>[facility] MOTOR VEHICLE LICENSE CLERK</td><td>[facility] 09/03/2019 Health Center</td><td>09/03/2019</td><td></td> 01:51:4 7 PM Center) EST Outpatient<td Attender: Marquis 09/02/2019 [place] ID="encounterTypeDescriptionID1">*No [facility] 02:29:00 P M ([place] Show*</td><td>[facility] MOTOR VEHICLE LICENSE CLERK</td><td>[facility] 09/02/2019 Health Center</td><td>09/02/2019</td><td></td> 11:59:0 0 PM Center) EST Outpatient<td Attender: Marquis 09/01/2019 [place] ID="encounterTypeDescriptionID2">*No [facility] 03:42:00 P M ([place] Show*</td><td>ANDREA BRUNER MD [facility] EST - [facility] </td><td>[facility] 09/01/2019 Health Center</td><td>09/01/2019</td><td></td> 11:59:0 0 PM Center) EST Insurance Providers Payer name Policy type / Policy ID Covered Covered alliance party's Policy Plan Coverage type alliance party ID relationship to Nelson Information nelson [facility] [id number] P HMO KEI O [id number] [employer] Carlo Care Individual 0 Self 0 [place] Policy CARLO W [id number] 01 [id number] SELF PAY SP INSURANCE [facility] [id number] SP [id number] NON CAP Carlo Care Commercial [id number] Self [id number] [facility] Reji Vision [id number] S [id number] MKD Carlo Family [id number] S [id number] Planning MKD & EP 3 & 4 Only Dental [id number] S [id number] 100 Dentaquest MKD Medicaid [id number] S [id number] Regular Clinic Visit Dental [id number] S [id number] 100 Dentaquest MKD Reji Vision [id number] S [id number] MKD [facility] [id number] S [id number] [place] Medicaid Carlo Care Individual 0 Self 0 [place] Policy [facility] Individual 0 Self 0 [place] Policy [facility] Individual 0 Self 0 [place] Policy Problems, Conditions, and Diagnoses Code Display Name Description Problem Type Effective Dates Data Source(s) F41.9 Anxiety disorder, ANXIETY DISORDER, Diagnosis 04/01/2020 [facility] unspecified UNSPECIFIED 04:54:00 PM EDT Medical Center R06.00 Dyspnea, DYSPNEA, Diagnosis 04/01/2020 [facility] unspecified UNSPECIFIED 04:54:00 PM EDT Medical Center R06.02 Shortness of breath SHORTNESS OF Diagnosis 04/01/2020 Tariq nt [facility] BREATH 04:54:00 PM EDT Medical C enter N76.0 Acute vaginitis ACUTE VAGINITIS Diagnosis 03/21/2020 Elan t [facility] 01:45:00 PM EDT Medical C enter Z11.3 Encounter for ENCNTR SCREEN FOR Diagnosis 03/21/2020 Elan t [facility] screening for INFECTIONS W SEXL 01:45:00 PM EDT Medical Center infections with a MODE OF TRANSMISS predominantly sexual mode of transmission K92.1 Melena MELENA Diagnosis 11/04/2019 [facility] 09:45:00 AM EST Medical C enter R10.9 Unspecified UNSPECIFIED Diagnosis 11/04/2019 [place] abdominal pain ABDOMINAL PAIN 09:45:00 AM EST edical Center J02.9 Acute pharyngitis, ACUTE Diagnosis 09/04/2019 [facility] unspecified PHARYNGITIS, 03:41:00 PM EST Medica l Center UNSPECIFIED K62.5 Hemorrhage of anus HEMORRHAGE OF Diagnosis 09/04/2019 Tariq nt [facility] and rectum ANUS AND RECTUM 03:41:00 PM EST [facility] Results ID Date Data Source Liver 04/01/2020 06:50:00 PM EDT [facility] Profile.[id number] Name Value Range Interpretation Description Data Sup porting Code Source(s) Document(s ) Alanine 7-30 <content Saint aminotransferase styleCode="Bold"> [facility] hs [Enzymatic Alanine Medical activity/volume] Aminotransferase Center in Serum or Plasma (ALT) </content>13 IU/L<content styleCode="Italic s"> (7-30 IU/L)</content> Aspartate 14-36 Above high <content Saint aminotransferase normal styleCode="Bold"> [facility] hs [Enzymatic Aspartate Medical activity/volume] Aminotransferase Center in Serum or Plasma (AST) </content>37 IU/L H<content styleCode="Italic s"> (14-36 IU/L)</content> Alkaline 38-126 <content [facility] phosphatase styleCode="Bold"> [facility] [Enzymatic Alkaline Medical activity/volume] Phosphatase (ALP) Cente r in Serum or Plasma </content>59 IU/L<content styleCode="Italic s"> (38-126 IU/L)</content> Bilirubin.total 0.2-1.3 <content Saint [Mass/volume] in styleCode="Bold"> Robert hs Serum or Plasma Bilirubin Total Medical </content>1.1 Center MG/DL<content styleCode="Italic s"> (0.2-1.3 MG/DL)</content> Albumin 3.5-5.0 <content Saint [Mass/volume] in styleCode="Bold"> Robert hs Serum or Plasma Albumin Medical </content>4.5 Center G/DL<content styleCode="Italic s"> (3.5-5.0 G/DL)</content> ID Date Data Source HematologyRou.[id number] 04/01/2020 06:50:00 PM EDT [facility] 0400 Name Value Range Interpretation Description Data Sup porting Code Source(s) Document(s ) Erythrocytes 4.0-5.1 <content Saint [#/volume] in styleCode="Bold [facility] Blood by ">Red Blood Medical Automated count Cell Count Center </content>4.29 MCUMM<content styleCode="Ital ics"> (4.0-5.1 MCUMM)</content > Hemoglobin 12.3-16. <content Saint [Mass/volume] in 0 styleCode="Bold [facility] Blood ">Hemoglobin Medical </content>14.2 Center G/DL<content styleCode="Ital ics"> (12.3-16.0 G/DL)</content> Leukocytes 4.4-11.0 <content Saint [#/volume] in styleCode="Bold [facility] Blood by ">White Blood Medical Automated count Cell Count Center </content>7.16 KCUMM<content styleCode="Ital ics"> (4.4-11.0 KCUMM)</content > Hematocrit 36.0-46. <content Saint [Volume 0 styleCode="Bold [facility] Fraction] of ">Hematocrit Medical Blood by </content>42.9 Center Automated count %<content styleCode="Ital ics"> (36.0-46.0 %)</content> Erythrocyte mean 26.0-34. <content Saint corpuscular 0 styleCode="Bold Brady hemoglobin ">Mean Medical [Entitic mass] Corposcular Center by Automated Hemoglobin count </content>33.1 PG<content styleCode="Ital ics"> (26.0-34.0 PG)</content> Erythrocyte mean 32.0-37. <content [facility] corpuscular 0 styleCode="Bold Brady hemoglobin ">Mean Corpus. Medical concentration Hgb Center [Mass/volume] by Concentration Automated count (MCHC) </content>33.1 G/DL<content styleCode="Ital ics"> (32.0-37.0 G/DL)</content> Erythrocyte mean 80.0-100 <content Saint corpuscular .0 styleCode="Bold Brady volume [Entitic ">Mean Medical volume] by Corpuscular Center Automated count Volume </content>100.0 FL<content styleCode="Ital ics"> (80.0-100.0 FL)</content> Platelet mean 8.0-11.0 <content Saint volume [Entitic styleCode="Bold Brady volume] in Blood ">Mean Platelet Medical by Automated Volume Center count </content>10.8 FL<content styleCode="Ital ics"> (8.0-11.0 FL)</content> Erythrocyte 11.5-14. <content Saint distribution 5 styleCode="Bold Brady width [Ratio] by ">Red Cell Medical Automated count Distribution Center Width </content>12.4 %<content styleCode="Ital ics"> (11.5-14.5 %)</content> Platelets 130-400 <content Saint [#/volume] in styleCode="Bold [facility] Blood by ">Platelet Medical Automated count Count Center </content>271 KCUMM<content styleCode="Ital ics"> (130-400 KCUMM)</content > Neutrophils 36-66 Above high <content Saint [#/volume] in normal styleCode="Bold [facility] Blood by ">Neutrophil Medical Automated count </content>70.1 Center % H<content styleCode="Ital ics"> (36-66 %)</content> Lymphocytes 24.0-44. Below low normal <content Saint [#/volume] in 0 styleCode="Bold [facility] Blood by ">Lymphocyte Medical Automated count </content>20.7 Center % L<content styleCode="Ital ics"> (24.0-44.0 %)</content> UNK 1.0-4.8 <content Saint styleCode="Bold Brady ">Lymphocyte Medical Count Center </content>1.48 KCUMM<content styleCode="Ital ics"> (1.0-4.8 KCUMM)</content > Monocytes 3.0-10.0 <content Saint [#/volume] in styleCode="Bold [facility] Blood by ">Monocyte Medical Automated count </content>7.5 Center %<content styleCode="Ital ics"> (3.0-10.0 %)</content> UNK 1.6-7.3 <content Saint styleCode="Bold Brady ">Neutrophil Medical Count Center </content>5.02 KCUMM<content styleCode="Ital ics"> (1.6-7.3 KCUMM)</content > UNK 0.0-0.6 <content Saint styleCode="Bold Brady ">Eosinophil Medical Count Center </content>0.07 KCUMM<content styleCode="Ital ics"> (0.0-0.6 KCUMM)</content > Eosinophils 0-5.0 <content Saint [#/volume] in styleCode="Bold [facility] Blood by ">Eosinophil Medical Automated count </content>1.0 Center %<content styleCode="Ital ics"> (0-5.0 %)</content> Basophils 0.0-1.0 <content Saint [#/volume] in styleCode="Bold [facility] Blood by ">Basophil Medical Automated count </content>0.6 Center %<content styleCode="Ital ics"> (0.0-1.0 %)</content> UNK 0.2-0.9 <content Saint styleCode="Bold Brady ">Monocyte Medical Count Center </content>0.54 KCUMM<content styleCode="Ital ics"> (0.2-0.9 KCUMM)</content > UNK 0 <content Saint styleCode="Bold Brady ">Nucleated Red Medical Blood Cell Center </content>0.0 /100<content styleCode="Ital ics"> (0 /100)</content> UNK 0.0 <content Saint styleCode="Bold Brady ">Nucleated Red Medical Blood Cell Center Count </content>0.00 KCUMM<content styleCode="Ital ics"> (0.0 KCUMM)</content > UNK 0-0.1 <content Saint styleCode="Bold Brady ">Immature Medical Granulocyte Center Count </content>0.01 KCUMM<content styleCode="Ital ics"> (0-0.1 KCUMM)</content > UNK 0.0-0.3 <content Saint styleCode="Bold Brady ">Basophil Medical Count Center </content>0.04 KCUMM<content styleCode="Ital ics"> (0.0-0.3 KCUMM)</content > UNK < 1 <content Saint styleCode="Bold Brady ">Immature Medical Granulocyte Center Ratio </content>0.1 %<content styleCode="Ital ics"> (< 1 %)</content> ID Date Data Source GFR(Creatinine).[id number] 04/01/2020 06:50:00 PM EDT [facility] 0-0400 Name Value Range Interpretation Code Description Data Carolyne rce(s) Supporting Document(s ) UNK > 60 <content [facility] styleCode="Bold"> Medical Cent er EGFR </content>131 GFR<content styleCode="Italic s"> (> 60 GFR)</content> ID Date Data Source BABSMROUTINECCDA.[id number] 04/01/2020 06:50:00 PM EDT [facility] -0400 Name Value Range Interpretation Description Data Sup porting Code Source(s) Document(s ) UNK >= 1.0 <content [facility] styleCode="Bold Medical ">AG Ratio Center </content>1.5 <content styleCode="Ital ics"> (>= 1.0 )</content> UNK 2.3-3.5 <content [facility] styleCode="Bold Medical ">Globulin Center </content>3.0 G/DL<content styleCode="Ital ics"> (2.3-3.5 G/DL)</content> Protein 6.3-8.2 <content [facility] [Mass/volum styleCode="Bold Medical e] in Serum ">Total Protein Center or Plasma </content>7.5 G/DL<content styleCode="Ital ics"> (6.3-8.2 G/DL)</content> ID Date Data Source [facility].[id number] 04/01/2020 06:50:00 PM EDT [facility] Name Value Range Interpretation Description Data Sup porting Code Source(s) Document(s ) Sodium 137-145 Below low <content Saint [Moles/volume] in normal styleCode="Bold"> Duc phs Serum or Plasma Sodium Medical </content>136 Center MEQ/L L<content styleCode="Italic s"> (137-145 MEQ/L)</content> Chloride 98-107 <content Saint [Moles/volume] in styleCode="Bold"> Duc phs Serum or Plasma Chloride Medical </content>104 Center MEQ/L<content styleCode="Italic s"> (98-107 MEQ/L)</content> Carbon dioxide, 22-30 <content Saint total styleCode="Bold"> Brady [Moles/volume] in Carbon Dioxide Medical Serum or Plasma </content>23 Center MEQ/L<content styleCode="Italic s"> (22-30 MEQ/L)</content> Potassium <content Saint [Moles/volume] in styleCode="Bold"> Duc phs Serum or Plasma Potassium Medical </content>Test Center not performed. MEQ/L (Reference Range: not available)
UNK 7-17 <content Saint styleCode="Bold"> Brady BUN </content>10 Medical MG/DL<content Center styleCode="Italic s"> (7-17 MG/DL)</content> Calcium 8.4-10. <content Saint [Mass/volume] in 2 styleCode="Bold"> Robert hs Serum or Plasma Calcium Medical </content>9.4 Center MG/DL<content styleCode="Italic s"> (8.4-10.2 MG/DL)</content> UNK > 60 <content Saint styleCode="Bold"> [facility] EGFR Medical </content>131 Center GFR<content styleCode="Italic s"> (> 60 GFR)</content> Glucose 74-106 <content Saint [Mass/volume] in styleCode="Bold"> Robert hs Serum or Plasma Glucose Medical </content>89 Center MG/DL<content styleCode="Italic s"> (74-106 MG/DL)</content> Creatinine 0.5-1.3 <content Saint [Mass/volume] in styleCode="Bold"> Robert hs Serum or Plasma Creatinine Medical </content>0.6 Center MG/DL<content styleCode="Italic s"> (0.5-1.3 MG/DL)</content> Bilirubin.total 0.2-1.3 <content Saint [Mass/volume] in styleCode="Bold"> Robert hs Serum or Plasma Bilirubin Total Medical </content>1.1 Center MG/DL<content styleCode="Italic s"> (0.2-1.3 MG/DL)</content> Aspartate 14-36 Above high <content Saint aminotransferase normal styleCode="Bold"> Robert hs [Enzymatic Aspartate Medical activity/volume] Aminotransferase Center in Serum or Plasma (AST) </content>37 IU/L H<content styleCode="Italic s"> (14-36 IU/L)</content> Alanine 7-30 <content [facility] aminotransferase styleCode="Bold"> Robert hs [Enzymatic Alanine Medical activity/volume] Aminotransferase Center in Serum or Plasma (ALT) </content>13 IU/L<content styleCode="Italic s"> (7-30 IU/L)</content> Alkaline 38-126 <content Saint phosphatase styleCode="Bold"> [facility] [Enzymatic Alkaline Medical activity/volume] Phosphatase (ALP) Cente r in Serum or Plasma </content>59 IU/L<content styleCode="Italic s"> (38-126 IU/L)</content> Albumin 3.5-5.0 <content Saint [Mass/volume] in styleCode="Bold"> Robert hs Serum or Plasma Albumin Medical </content>4.5 Center G/DL<content styleCode="Italic s"> (3.5-5.0 G/DL)</content> ID Date Data Source Urinalysis.[id number] 03/21/2020 01:57:00 PM EDT [facility] 0 Name Value Range Interpretation Description Data Sup porting Code Source(s) Document(s ) UNK CLEAR <content Saint styleCode="Sylvester [facility] d">Urine Medical Clarity Center </content>SARKIS R <content styleCode="Emperatriz lics"> (CLEAR )</content> Glucose NEGATIVE <content Saint [Mass/volume] styleCode="Sylvester Abreu in Urine by d">Urine Medical Test strip Glucose Center </content>NEGA TIVE MG/DL<content styleCode="Emperatriz lics"> (NEGATIVE MG/DL)</conten t> Color of Urine YELLOW <content Saint styleCode="Sylvester Brocks d">Color, Medical Urine Center </content>YELL OW <content styleCode="Emperatriz lics"> (YELLOW )</content> UNK NEGATIVE <content Saint styleCode="Sylvester Brady d">Urine Medical Bilirubin Center </content>SMAL L <content styleCode="Emperatriz lics"> (NEGATIVE )</content> Specific 1.015-1.02 Above high <content Saint gravity of 5 normal styleCode="Sylvester Abreu Urine by Test d">Urine Medical strip Specific Center [place] </content>>= 1.030 H<content styleCode="Emperatriz lics"> (1.015-1.025 )</content> Ketones NEGATIVE <content Saint [Mass/volume] styleCode="Sylvester Brocks in Urine by d">Urine Medical Test strip Ketone Center </content>TRAC E MG/DL<content styleCode="Emperatriz lics"> (NEGATIVE MG/DL)</conten t> Hemoglobin NEGATIVE <content Saint [Presence] in styleCode="Sylvester Abreu Urine by Test d">Urine Blood Medical strip </content>NEGA Center TIVE <content styleCode="Emperatriz lics"> (NEGATIVE )</content> Urobilinogen 0.2-1.0 <content Saint [Units/volume] styleCode="Sylvester Brocks in Urine by d">Urine Medical Test strip Urobilinogen Center </content>1.0 MG/DL<content styleCode="Emperatriz lics"> (0.2-1.0 MG/DL)</conten t> Protein NEGATIVE <content Saint [Mass/volume] styleCode="Sylvester Brocks in Urine by d">Urine Medical Test strip Protein Center </content>NEGA TIVE MG/DL<content styleCode="Emperatriz lics"> (NEGATIVE MG/DL)</conten t> pH of Urine by 4.5-8.0 <content Saint Test strip styleCode="Sylvester Brocks d">Urine pH Medical </content>5.5 Center <content styleCode="Emperatriz lics"> (4.5-8.0 )</content> Nitrite NEGATIVE <content Saint [Presence] in styleCode="Sylvester Abreu Urine by Test d">Urine Medical strip Nitrite Center </content>NEGA TIVE <content styleCode="Emperatriz lics"> (NEGATIVE )</content> Leukocyte NEGATIVE <content Saint esterase styleCode="Sylvester Abreu [Presence] in d">Urine Medical Urine by Test Leukocyte Center strip </content>NEGA TIVE <content styleCode="Emperatriz lics"> (NEGATIVE )</content> ID Date Data Source Liver 11/04/2019 10:57:00 AM EST [facility] Profile.[id number] Name Value Range Interpretation Description Data Sup porting Code Source(s) Document(s ) Aspartate 14-36 <content Saint aminotransferase styleCode="Bold"> Robert hs [Enzymatic Aspartate Medical activity/volume] Aminotransferase Center in Serum or Plasma (AST) </content>18 IU/L<content styleCode="Italic s"> (14-36 IU/L)</content> Alanine 7-30 <content Saint aminotransferase styleCode="Bold"> [facility] hs [Enzymatic Alanine Medical activity/volume] Aminotransferase Center in Serum or Plasma (ALT) </content>12 IU/L<content styleCode="Italic s"> (7-30 IU/L)</content> Alkaline 38-126 <content Saint phosphatase styleCode="Bold"> [facility] [Enzymatic Alkaline Medical activity/volume] Phosphatase (ALP) Cente r in Serum or Plasma </content>65 IU/L<content styleCode="Italic s"> (38-126 IU/L)</content> Bilirubin.total 0.2-1.3 <content Saint [Mass/volume] in styleCode="Bold"> Robert hs Serum or Plasma Bilirubin Total Medical </content>0.2 Center MG/DL<content styleCode="Italic s"> (0.2-1.3 MG/DL)</content> Albumin 3.5-5.0 <content Saint [Mass/volume] in styleCode="Bold"> Robert hs Serum or Plasma Albumin Medical </content>4.0 Center G/DL<content styleCode="Italic s"> (3.5-5.0 G/DL)</content> ID Date Data Source HematologyRou.[id number] 11/04/2019 10:57:00 AM SABA [facility] 0500 Name Value Range Interpretation Description Data Sup porting Code Source(s) Document(s ) Erythrocytes 4.0-5.1 <content Saint [#/volume] in styleCode="Bold [facility] Blood by ">Red Blood Medical Automated count Cell Count Center </content>4.08 MCUMM<content styleCode="Ital ics"> (4.0-5.1 MCUMM)</content > Leukocytes 4.4-11.0 <content Saint [#/volume] in styleCode="Bold [facility] Blood by ">White Blood Medical Automated count Cell Count Center </content>5.59 KCUMM<content styleCode="Ital ics"> (4.4-11.0 KCUMM)</content > Hemoglobin 12.3-16. <content Saint [Mass/volume] in 0 styleCode="Bold Brady Blood ">Hemoglobin Medical </content>13.2 Center G/DL<content styleCode="Ital ics"> (12.3-16.0 G/DL)</content> Erythrocyte mean 80.0-100 <content Saint corpuscular .0 styleCode="Bold Brady volume [Entitic ">Mean Medical volume] by Corpuscular Center Automated count Volume </content>100.2 FL<content styleCode="Ital ics"> (80.0-100.0 FL)</content> Hematocrit 36.0-46. <content Saint [Volume 0 styleCode="Bold [facility] Fraction] of ">Hematocrit Medical Blood by </content>40.9 Center Automated count %<content styleCode="Ital ics"> (36.0-46.0 %)</content> Erythrocyte mean 26.0-34. <content Saint corpuscular 0 styleCode="Bold Brady hemoglobin ">Mean Medical [Entitic mass] Corposcular Center by Automated Hemoglobin count </content>32.4 PG<content styleCode="Ital ics"> (26.0-34.0 PG)</content> Erythrocyte mean 32.0-37. <content Saint corpuscular 0 styleCode="Bold Brady hemoglobin ">Mean Corpus. Medical concentration Hgb Center [Mass/volume] by Concentration Automated count (MCHC) </content>32.3 G/DL<content styleCode="Ital ics"> (32.0-37.0 G/DL)</content> Platelets 130-400 <content Saint [#/volume] in styleCode="Bold [facility] Blood by ">Platelet Medical Automated count Count Center </content>207 KCUMM<content styleCode="Ital ics"> (130-400 KCUMM)</content > Erythrocyte 11.5-14. <content Saint distribution 5 styleCode="Bold Brady width [Ratio] by ">Red Cell Medical Automated count Distribution Center Width </content>12.4 %<content styleCode="Ital ics"> (11.5-14.5 %)</content> Platelet mean 8.0-11.0 <content Saint volume [Entitic styleCode="Bold Brady volume] in Blood ">Mean Platelet Medical by Automated Volume Center count </content>10.2 FL<content styleCode="Ital ics"> (8.0-11.0 FL)</content> UNK 1.6-7.3 <content Saint styleCode="Bold Brady ">Neutrophil Medical Count Center </content>3.54 KCUMM<content styleCode="Ital ics"> (1.6-7.3 KCUMM)</content > Lymphocytes 24.0-44. Below low normal <content [facility] [#/volume] in 0 styleCode="Bold Brady Blood by ">Lymphocyte Medical Automated count </content>17.7 Center % L<content styleCode="Ital ics"> (24.0-44.0 %)</content> Neutrophils 36-66 <content Saint [#/volume] in styleCode="Bold Brady Blood by ">Neutrophil Medical Automated count </content>63.3 Center %<content styleCode="Ital ics"> (36-66 %)</content> Monocytes 3.0-10.0 Above high <content [facility] [#/volume] in normal styleCode="Bold Brady Blood by ">Monocyte Medical Automated count </content>13.1 Center % H<content styleCode="Ital ics"> (3.0-10.0 %)</content> Eosinophils 0-5.0 Above high <content Saint [#/volume] in normal styleCode="Bold Brady Blood by ">Eosinophil Medical Automated count </content>5.2 % Center H<content styleCode="Ital ics"> (0-5.0 %)</content> UNK 0.0-0.6 <content Saint styleCode="Bold Brady ">Eosinophil Medical Count Center </content>0.29 KCUMM<content styleCode="Ital ics"> (0.0-0.6 KCUMM)</content > UNK 0.2-0.9 <content [facility] styleCode="Bold Brady ">Monocyte Medical Count Center </content>0.73 KCUMM<content styleCode="Ital ics"> (0.2-0.9 KCUMM)</content > UNK 1.0-4.8 Below low normal <content Saint styleCode="Bold Brady ">Lymphocyte Medical Count Center </content>0.99 KCUMM L<content styleCode="Ital ics"> (1.0-4.8 KCUMM)</content > UNK 0.0-0.3 <content [facility] styleCode="Bold Brady ">Basophil Medical Count Center </content>0.03 KCUMM<content styleCode="Ital ics"> (0.0-0.3 KCUMM)</content > Basophils 0.0-1.0 <content Saint [#/volume] in styleCode="Bold Brady Blood by ">Basophil Medical Automated count </content>0.5 Center %<content styleCode="Ital ics"> (0.0-1.0 %)</content> UNK 0.0 <content [facility] styleCode="Bold Brady ">Nucleated Red Medical Blood Cell Center Count </content>0.00 KCUMM<content styleCode="Ital ics"> (0.0 KCUMM)</content > UNK 0 <content Saint styleCode="Bold Brady ">Nucleated Red Medical Blood Cell Center </content>0.0 /100<content styleCode="Ital ics"> (0 /100)</content> UNK < 1 <content [facility] styleCode="Bold Brady ">Immature Medical Granulocyte Center Ratio </content>0.2 %<content styleCode="Ital ics"> (< 1 %)</content> UNK 0-0.1 <content [facility] styleCode="Bold Brady ">Immature Medical Granulocyte Center Count </content>0.01 KCUMM<content styleCode="Ital ics"> (0-0.1 KCUMM)</content > ID Date Data Source GFR(Creatinine).[id number] 11/04/2019 10:57:00 AM [facility] 0-0500 Name Value Range Interpretation Code Description Data Carolyne rce(s) Supporting Document(s ) UNK > 60 <content [facility] styleCode="Bold"> Medical Cent er EGFR </content>131 GFR<content styleCode="Italic s"> (> 60 GFR)</content> ID Date Data Source CHMROUTINECCDA.[id number] 11/04/2019 10:57:00 AM [facility] -0500 Name Value Range Interpretation Description Data Sup porting Code Source(s) Document(s ) Lipase 23-300 <content [facility] [Enzymatic styleCode="Bold Medical activity/vo ">Lipase Center lume] in </content>60 Serum or IU/L<content Plasma styleCode="Ital ics"> (23-300 IU/L)</content> UNK 2.3-3.5 <content [facility] styleCode="Bold Medical ">Globulin Center </content>2.8 G/DL<content styleCode="Ital ics"> (2.3-3.5 G/DL)</content> UNK >= 1.0 <content [facility] styleCode="Bold Medical ">AG Ratio Center </content>1.4 <content styleCode="Ital ics"> (>= 1.0 )</content> Protein 6.3-8.2 <content [facility] [Mass/volum styleCode="Bold Medical e] in Serum ">Total Protein Center or Plasma </content>6.8 G/DL<content styleCode="Ital ics"> (6.3-8.2 G/DL)</content> ID Date Data Source [facility].[id number] 11/04/2019 10:57:00 AM EST [facility] Name Value Range Interpretation Description Data Sup porting Code Source(s) Document(s ) Potassium 3.5-5.3 <content [facility] [Moles/volume] in styleCode="Bold"> [facility] Serum or Plasma Potassium Medical </content>4.3 Center MEQ/L<content styleCode="Italic s"> (3.5-5.3 MEQ/L)</content> Sodium 137-145 <content [facility] [Moles/volume] in styleCode="Bold"> [facility] Serum or Plasma Sodium Medical </content>137 Center MEQ/L<content styleCode="Italic s"> (137-145 MEQ/L)</content> Chloride 98-107 <content [facility] [Moles/volume] in styleCode="Bold"> [facility] Serum or Plasma Chloride Medical </content>105 Center MEQ/L<content styleCode="Italic s"> (98-107 MEQ/L)</content> Carbon dioxide, 22-30 <content [facility] total styleCode="Bold"> Brady [Moles/volume] in Carbon Dioxide Medical Serum or Plasma </content>28 Center MEQ/L<content styleCode="Italic s"> (22-30 MEQ/L)</content> Creatinine 0.5-1.3 <content [facility] [Mass/volume] in styleCode="Bold"> Robert hs Serum or Plasma Creatinine Medical </content>0.6 Center MG/DL<content styleCode="Italic s"> (0.5-1.3 MG/DL)</content> Calcium 8.4-10. <content [facility] [Mass/volume] in 2 styleCode="Bold"> Robert hs Serum or Plasma Calcium Medical </content>9.2 Center MG/DL<content styleCode="Italic s"> (8.4-10.2 MG/DL)</content> UNK 7-17 <content [facility] styleCode="Bold"> Brady BUN </content>10 Medical MG/DL<content Center styleCode="Italic s"> (7-17 MG/DL)</content> Glucose 74-106 <content [facility] [Mass/volume] in styleCode="Bold"> Robert hs Serum or Plasma Glucose Medical </content>103 Center MG/DL<content styleCode="Italic s"> (74-106 MG/DL)</content> Albumin 3.5-5.0 <content [facility] [Mass/volume] in styleCode="Bold"> Robert hs Serum or Plasma Albumin Medical </content>4.0 Center G/DL<content styleCode="Italic s"> (3.5-5.0 G/DL)</content> Alanine 7-30 <content [facility] aminotransferase styleCode="Bold"> Robert hs [Enzymatic Alanine Medical activity/volume] Aminotransferase Center in Serum or Plasma (ALT) </content>12 IU/L<content styleCode="Italic s"> (7-30 IU/L)</content> Aspartate 14-36 <content [facility] aminotransferase styleCode="Bold"> Robert hs [Enzymatic Aspartate Medical activity/volume] Aminotransferase Center in Serum or Plasma (AST) </content>18 IU/L<content styleCode="Italic s"> (14-36 IU/L)</content> UNK > 60 <content [facility] styleCode="Bold"> Brady EGFR Medical </content>131 Center GFR<content styleCode="Italic s"> (> 60 GFR)</content> Alkaline 38-126 <content [facility] phosphatase styleCode="Bold"> Brady [Enzymatic Alkaline Medical activity/volume] Phosphatase (ALP) Cente r in Serum or Plasma </content>65 IU/L<content styleCode="Italic s"> (38-126 IU/L)</content> Bilirubin.total 0.2-1.3 <content [facility] [Mass/volume] in styleCode="Bold"> Robert hs Serum or Plasma Bilirubin Total Medical </content>0.2 Center MG/DL<content styleCode="Italic s"> (0.2-1.3 MG/DL)</content> ID Date Data Source Urinalysis.[id number] 11/04/2019 10:50:00 AM [facility] 0 Name Value Range Interpretation Description Data Sup porting Code Source(s) Document(s ) Color of Urine YELLOW <content Saint styleCode="Sylvester Brocks d">Color, Medical Urine Center </content>YELL OW <content styleCode="Emperatriz lics"> (YELLOW )</content> UNK CLEAR <content Saint styleCode="Sylvester Brocks d">Urine Medical Clarity Center </content>SARKIS R <content styleCode="Emperatriz lics"> (CLEAR )</content> Ketones NEGATIVE <content Saint [Mass/volume] styleCode="Sylvester Brocks in Urine by d">Urine Medical Test strip Ketone Center </content>NEGA TIVE MG/DL<content styleCode="Emperatriz lics"> (NEGATIVE MG/DL)</conten t> UNK NEGATIVE <content Saint styleCode="Sylvester Brady d">Urine Medical Bilirubin Center </content>NEGA TIVE <content styleCode="Emperatriz lics"> (NEGATIVE )</content> Glucose NEGATIVE <content Saint [Mass/volume] styleCode="Sylvester Brady in Urine by d">Urine Medical Test strip Glucose Center </content>NEGA TIVE MG/DL<content styleCode="Emperatriz lics"> (NEGATIVE MG/DL)</conten t> Specific 1.015-1.02 Above high <content [facility] gravity of 5 normal styleCode="Sylvester Brady Urine by Test d">Urine Medical strip Specific Center [place] </content>>= 1.030 H<content styleCode="Emperatriz lics"> (1.015-1.025 )</content> Hemoglobin NEGATIVE <content Saint [Presence] in styleCode="Sylvester Brady Urine by Test d">Urine Blood Medical strip </content>TRAC Center E <content styleCode="Emperatriz lics"> (NEGATIVE )</content> pH of Urine by 4.5-8.0 <content [facility] Test strip styleCode="Sylvester Brady d">Urine pH Medical </content>5.5 Center <content styleCode="Emperatriz lics"> (4.5-8.0 )</content> Protein NEGATIVE <content [facility] [Mass/volume] styleCode="Sylvester Brady in Urine by d">Urine Medical Test strip Protein Center </content>NEGA TIVE MG/DL<content styleCode="Emperatriz lics"> (NEGATIVE MG/DL)</conten t> Urobilinogen 0.2-1.0 <content [facility] [Units/volume] styleCode="Sylvester Brady in Urine by d">Urine Medical Test strip Urobilinogen Center </content>0.2 MG/DL<content styleCode="Emperatriz lics"> (0.2-1.0 MG/DL)</conten t> Leukocyte NEGATIVE <content Saint esterase styleCode="Sylvester Brady [Presence] in d">Urine Medical Urine by Test Leukocyte Center strip </content>NEGA TIVE <content styleCode="Emperatriz lics"> (NEGATIVE )</content> UNK 0-3 <content Saint styleCode="Sylvester Brady d">Urine White Medical Blood Cell Center </content>0-3 HPF<content styleCode="Emperatriz lics"> (0-3 HPF)</content> UNK NEGATIVE <content Saint styleCode="Sylvester Brady d">Urine Medical Bacteria Center </content>FEW HPF<content styleCode="Emperatriz lics"> (NEGATIVE HPF)</content> UNK 0-3 <content Saint styleCode="Sylvester Brady d">Urine Red Medical Blood Cell Center </content>3-5 HPF<content styleCode="Emperatriz lics"> (0-3 HPF)</content> Nitrite NEGATIVE <content Saint [Presence] in styleCode="Sylvester Arbeu Urine by Test d">Urine Medical strip Nitrite Center </content>NEGA TIVE <content styleCode="Emperatriz lics"> (NEGATIVE )</content> UNK NONE SEEN <content Saint styleCode="Sylvester Brocks d">Urine Mucus Medical </content>MANY Center HPF<content styleCode="Emperatriz lics"> (NONE SEEN HPF)</content> UNK NONE SEEN <content Saint styleCode="Sylvester Brady d">Epithelial Medical Cell Center </content>20-2 5 HPF<content styleCode="Emperatriz lics"> (NONE SEEN HPF)</content> ID Date Data Source Microbiology.[id number] 09/04/2019 05:27:00 PM EST [facility] 500 Name Value Range Interpretation Description Data Sup porting Code Source(s) Document(s ) UNK <item><content Saint styleCode="Sylvester Brocks d">Culture Medical Report Center </content><br/ ><table><tbody ><tr><td>Speci men Number:</td><t d>[id number]</t d></tr><tr><td >Sample Collection Date/Time: </td><td>09/04 5:27 PM</td></tr><t r><td>Specimen Source:</td><t d>THROAT</td>< /tr><tr><td>Th roat-Nose Culture:</td>< td>Collection Plate Date: 09/04/2019 17:36 </td></tr><tr> <td>Culture Status:</td><t d>Final </td></tr><tr> <td>Culture Report:</td><t d>NEGATIVE FOR BETA HEMOLYTIC STREPTOCOCCI </td></tr></tb emerita></table></ item> UNK <item><content Saint styleCode="Sylvester Abreu d">Culture Medical Status Center </content><br/ ><table><tbody ><tr><td>Speci men Number:</td><t d>[id number]</t d></tr><tr><td >Sample Collection Date/Time: </td><td>09/04 5:27 PM</td></tr><t r><td>Specimen Source:</td><t d>THROAT</td>< /tr><tr><td>Cu lture Report:</td><t d>NEGATIVE FOR BETA HEMOLYTIC STREPTOCOCCI </td></tr><tr> <td>Throat-Nos e Culture:</td>< td>Collection Plate Date: 09/04/2019 17:36 </td></tr><tr> <td>Culture Status:</td><t d>Final </td></tr></tb emerita></table></ item> Streptococcus NEGATIVE <item><content pyogenes Ag styleCode="[facility] [Presence] in d">Rapid Strep Medical Unspecified A Center specimen by </content><br/ Immunoassay ><table><tbody ><tr><td>Speci men Number:</td><t d>[id number]</t d></tr><tr><td >Sample Collection Date/Time: </td><td>09/04 5:27 PM</td></tr><t r><td>Specimen Source:</td><t d>THROAT</td>< /tr><tr><td>Ra pid Strep A:</td><td>NEG ATIVE </td></tr></tb emerita></table></ item> ID Date Data Source Stools.[id number] 09/04/2019 05:26:00 PM EST [facility] Name Value Range Interpretation Code Description Data Carolyne rce(s) Supporting Document(s ) UNK NEGATIVE <content [facility] styleCode="Bold" Medical Cente r >Guaiac, Occult Blood </content>NEGATI VE <content styleCode="Itali cs"> (NEGATIVE )</content> ID Date Data Source [id number] 09/03/2019 03:50:51 PM EST JAE Y ([place] [id number] [facility]) Name Value Range Interpretation Description Data Source(s ) Supporting Code Document(s ) No Results No Results No Results CASSANDRA ([facility] Recorded For Antwan Specified ) Procedure Social History Code Duration Value Status Description Data Source(s ) Smoking 04/01/2020 Denies Ever completed Denies Ever Smoked [facility] 07:33:00 PM EDT Smoked Medical C enter Smoking 04/01/2020 Denies Ever completed Denies Ever Smoked [facility] 06:09:00 PM EDT Smoked Medical C enter Smoking 04/01/2020 Denies Ever completed Denies Ever Smoked [facility] 05:04:00 PM EDT Smoked Medical C enter Smoking 03/21/2020 Denies Ever completed Denies Ever Smoked [facility] 01:48:00 PM EDT Smoked Medical C enter Smoking 03/21/2020 Denies Ever completed Denies Ever Smoked [facility] 01:47:00 PM EDT Smoked Medical C enter Smoking 11/04/2019 Denies Ever completed Denies Ever Smoked [facility] 10:45:00 AM EST Smoked Medical C enter Smoking 11/04/2019 Denies Ever completed Denies Ever Smoked [facility] 10:00:00 AM EST Smoked Medical C enter Smoking 11/04/2019 Denies Ever completed Denies Ever Smoked [facility] 09:53:00 AM EST Smoked Medical C enter Smoking 09/04/2019 Denies Ever completed Denies Ever Smoked [facility] 05:55:00 PM EST Smoked Medical C enter Smoking 09/04/2019 Denies Ever completed Denies Ever Smoked [facility] 04:31:00 PM EST Smoked Medical C enter Smoking 09/04/2019 Denies Ever completed Denies Ever Smoked [facility] 04:03:00 PM EST Smoked Medical C enter Vital Signs ID Date Data Source UNK Name Value Range Interpretation Code Description Data Source(s) Body temperature 36.161618 36.894177 [facility] Respiratory rate 17 /min 17 /min [facility] Oxygen saturation 100 % 100 % [facility] blood [facility] by Pulse oximetry Heart rate 88 /min 88 /min [facility] Diastolic blood 72 mm[Hg] 72 mm[Hg] [facility] Systolic blood 114 mm[Hg] 114 mm[Hg] [facility] Body weight 54.941129 kg 54.986518 kg [facility] Measured Medical Center Body temperature 36.089040 36.578153 [facility] Respiratory rate 17 /min 17 /min [facility] Oxygen saturation 100 % 100 % [facility] blood [facility] by Pulse oximetry Heart rate 97 /min 97 /min [facility] Body height 157.297272 157.862712 cm [facility] Diastolic blood 75 mm[Hg] 75 mm[Hg] [facility] Systolic blood 114 mm[Hg] 114 mm[Hg] [facility] Body mass index 21.9 kg/m2 21.9 kg/m2 [facility] (BMI) [Ratio] Medical [facility] ter Body weight 55.166923 kg 55.954638 kg [facility] Measured Medical Center Body temperature 36.530501 36.492216 [facility] Respiratory rate 18 /min 18 /min [facility] Oxygen saturation 97 % 97 % [facility] blood [facility] by Pulse oximetry Heart rate 87 /min 87 /min [facility] Body height 157.765309 157.637884 cm [facility] Diastolic blood 71 mm[Hg] 71 mm[Hg] [facility] Systolic blood 128 mm[Hg] 128 mm[Hg] [facility] Body mass index 22.3 kg/m2 22.3 kg/m2 [facility] (BMI) [Ratio] Medical [facility] ter Body temperature 36.336704 36.620513 [facility] Respiratory rate 20 /min 20 /min [facility] Oxygen saturation 97 % 97 % [facility] blood [facility] by Pulse oximetry Heart rate 86 /min 86 /min [facility] Diastolic blood 65 mm[Hg] 65 mm[Hg] [facility] Systolic blood 112 mm[Hg] 112 mm[Hg] [facility] Body weight 55.862416 kg 55.550127 kg [facility] Body temperature 36.154966 36.648573 [facility] Respiratory rate 18 /min 18 /min [facility] Oxygen saturation 96 % 96 % [facility] Arterial blood [facility] Center by Pulse oximetry Heart rate 91 /min 91 /min [facility] Body height 157.925915 157.242995 cm [facility] Medical Center Diastolic blood 62 mm[Hg] 62 mm[Hg] [facility] pressure Medical Center Systolic blood 108 mm[Hg] 108 mm[Hg] [facility] Body mass index 22.3 kg/m2 22.3 kg/m2 [facility] (BMI) [Ratio] Medical [facility] ter Body temperature 37.794884 37.678311 [facility] Respiratory rate 17 /min 17 /min [facility] Oxygen saturation 100 % 100 % [facility] Arterial blood [facility] Center by Pulse oximetry Heart rate 84 /min 84 /min [facility] Diastolic blood 62 mm[Hg] 62 mm[Hg] [facility] Systolic blood 120 mm[Hg] 120 mm[Hg] [facility] Body temperature 37.435685 37.119749 [facility] Respiratory rate 16 /min 16 /min [facility] Oxygen saturation 99 % 99 % [facility] Arterial blood [facility] by Pulse oximetry Heart rate 90 /min 90 /min [facility] Diastolic blood 74 mm[Hg] 74 mm[Hg] [facility] Systolic blood 116 mm[Hg] 116 mm[Hg] [facility]
[2020-07-01] MEDS ORDERED: methylPREDNISolone NA SUCC 125 MG/2 ML VIAL IVPUSH ONE (08:07)
[2020-07-01] MEDS ORDERED: FAMOTIDINE 20 MG/50 ML IVPB 20 MG/50 ML MG IVPB ONE ×2 (08:07→08:12)
[2020-07-01] MEDS ORDERED: methylPREDNISolone NA SUCC 125 MG/2 ML VIAL ONE (08:12)
--- NOTE | 2020-07-01 09:05 | PDOC ---
Attending Attestation - Resident Resident Name: Lamar Grady - ED Attending Attestation I have performed the following: I have examined & evaluated the patient, The case was reviewed & discussed with the resident, I agree w/resident's findings & plan, Exceptions are as noted - HPI HPI: 07/01/20 09:00 25 F with no PMH presents to ED with rash, throat tightness, and lip swelling. Pt states that she awoke from sleep with these symptoms. Denies any new foods or meds last night. Last PO intake was 7 hours prior. Denies difficulty swallowing or breathing. - Physicial Exam PE: 07/01/20 09:01 See resident exam - Medical Decision Making 07/01/20 09:02 25 F with likely allergic reaction, unknown trigger. - Benadryl, steroids, pepcid Pt reassessed - symptoms completely resolved Will DC with director of epidemiology f/u Pt is well appearing, with normal vitals. Clinically stable for DC at this time. I discussed the physical exam findings, ancillary test results and final diagnoses with the patient. I answered all of the patient's questions. The patient was satisfied with the care received and felt comfortable with the discharge plan and treatment plan. The patient agrees to follow up with the primary care physician within 24-72 hours. Discharge - Discharge Information Problems reviewed: Yes Clinical Impression/Diagnosis: Rash, Lip swelling Allergic reaction Qualifiers: Encounter type: initial encounter Qualified Code(s): T78.40XA - Allergy, unspecified, initial encounter Disposition: HOME - Additional Discharge Information Prescriptions: EPINEPHrine (EPI-PEN 0.3MG) [Epipen 0.3MG -] 0.3 mg IM ASDIR #2 pens Prednisone [Prednisone 50 MG TABLETS] 50 mg PO DAILY #3 tablet - Follow up/Referral Referrals: [facility] [place] [Provider Group] Juvencio Grace MD [Staff Physician] - Jonny Joiner MD [Staff Physician] - Jordin Gómez MD [Staff Physician] - - Patient Discharge Instructions Additional Instructions: Please follow-up with your primary doctor(s) within 2-3 days. We recommend you see an Health Consultant - we have given you a list of allergists (check with your insurance before making any appointments). We have also referred you to the [facility] so you can establish yourself with a primary care physician. We have sent a prescription for an Epi-Pen to your pharmacy. Please pick it up as soon as possible. Always carry this with you. In the Emergency Department today, we spoke about how to use the Epi-Pen only in the event of a severe allergic reaction with trouble breathing or throat swelling. You must go to the hospital right away if you ever use the Epi-Pen. Remember that they every year so you should have your doctor write a new prescription yearly We have sent a prescription for prednisone to your pharmacy. Please pick it up as soon as possible and use as directed (50mg once daily for 3 more days). Take Benadryl (also called diphenhydramine) 25mg every 6-8 hours as needed for further allergy symptoms (can be purchased without a prescription) - please note that Benadryl often causes drowsiness so please do not drive, make important decisions or operate machinery until you know how it will affect you. Please return to the Emergency Department right away if you have any worsening or new shortness of breath, changes in your voice, tightness/itching in your mouth/throat, swelling, severe hives, chest pain, high fever. There is a very small chance of a recurrence of the allergic reaction, typically in the next 24 hours. If you see the same symptoms (rash, trouble breathing, vomiting, etc) return, come back to the Emergency Department immediately. - Post Discharge Activity
[2020-07-01 09:42] VITALS: BP 122/74; PULSE 78
== END 2020-07-01 09:42 | disposition home or self-care (01) ==
LOC: JER 07:18
PROC: 3E033GC Introduction of Other Therapeutic Substance into Peripheral Vein, Percutaneous Approach (ICD-10-PCS; principal; 2020-07-01)
DX: R21 Rash and other nonspecific skin eruption (principal); R22.0 Localized swelling, mass and lump, head; T78.40XA Allergy, unspecified, initial encounter
CPT/HCPCS: 99284-25

== ENCOUNTER 2022-04-10 11:06 | Emergency (ER) | payer OTHER ==
[2022-04-10 11:38] VITALS: BP 104/93; PULSE 99; RESP 16; TEMP 98.3; BMI 23.2
[2022-04-10] MEDS ORDERED: METOCLOPRAMIDE HCL INJECTION 10 MG/2 ML VIAL IVPUSH ONE (12:16)
[2022-04-10] MEDS ORDERED: ACETAMINOPHEN 1000 MG/100 ML BAG IVPB ONE (12:16)
[2022-04-10] MEDS ORDERED: SODIUM CHLORIDE 0.9% 500 ML INFUS.BAG IV ONE (12:16)
[2022-04-10] MEDS ORDERED: METOCLOPRAMIDE HCL INJECTION 10 MG/2 ML VIAL ONE (12:48)
[2022-04-10] MEDS ORDERED: ACETAMINOPHEN INJECTION 100 ML IVPB ONE (12:48)
[2022-04-10 13:04] LABS: ALBUMIN 3.4 g/dl (3.4-5.0); BLOOD UREA NITROGEN 11.2 mg/dL (7-18); CALCIUM 8.8 mg/dL (8.5-10.1)
[2022-04-10 13:04] LABS: BASO % 0.5 % (0-2.0); EOS % 2.7 % (0-4.5); HEMOGLOBIN 13.3 GM/dL (10.7-15.3); LYMPH % 18.2 % (8-40); MCH 33.6 pg (25.7-33.7); MCHC 34.1 g/dl (32.0-36.0); MEAN CELL VOLUME 98.5 fl (80-96); MEAN PLT VOLUME 8.8 fl (7.5-11.1); MONO % 10.7 % (3.8-10.2); NEUT % 67.9 % (42.8-82.8); PLATELET COUNT 231 10^3/uL (134-434); RBC 3.96 M/mm3 (3.60-5.2); RDW 13.2 % (11.6-15.6); WHITE BLOOD COUNT 5.8 K/mm3 (4.0-10.0)
[2022-04-10 13:07] LABS: CREATININE 0.9 mg/dL (0.55-1.3)
[2022-04-10 13:09] LABS: BILIRUBIN,TOTAL 0.2 mg/dL (0.2-1); TOT PROT 6.7 g/dl (6.4-8.2)
[2022-04-10 14:05] LABS: PH,URINE 5.5 (5.0-8.0); URINE APPEARANCE CLEAR; URINE BILIRUBIN NEGATIVE (NEGATIVE); URINE COLOR YELLOW; URINE GLUCOSE (UA) NEGATIVE (NEGATIVE); URINE KETONE NEGATIVE (NEGATIVE); URINE LEUK ESTERASE NEGATIVE (NEGATIVE); URINE NITRITE NEGATIVE (NEGATIVE); URINE PROTEIN NEGATIVE (NEGATIVE); URINE UROBILINOGEN 0.2 mg/dL (0.2-1.0)
== END 2022-04-10 15:53 | disposition home or self-care (01) ==
LOC: JER 11:06
PROC: 3E0333Z Introduction of Anti-inflammatory into Peripheral Vein, Percutaneous Approach (ICD-10-PCS; principal; 2022-04-10)
PROC: 3E033GC Introduction of Other Therapeutic Substance into Peripheral Vein, Percutaneous Approach (ICD-10-PCS; 2022-04-10)
DX: R51.9 Headache, unspecified (principal)
CPT/HCPCS: 36415; 70450-TC; 80053; 81003; 82962; 84703; 85025; 87077; 87086; 93005; 93010; 99285-25

== ENCOUNTER 2023-04-23 12:18 | Emergency (ER) | payer OTHER ==
[2023-04-23 12:32] VITALS: BP 120/81; PULSE 106; RESP 18; TEMP 98.2; BMI 23.8
[2023-04-23] MEDS ORDERED: ACETAMINOPHEN 500 MG TABLET (FP) PO ONE (13:33)
[2023-04-23] MEDS ORDERED: ACETAMINOPHEN 500 MG TABLET (FP) ONE (13:39)
== END 2023-04-23 13:43 | disposition home or self-care (01) ==
LOC: JER 12:18 → JERFT 12:18
DX: R05.9 Cough, unspecified (principal); R51.9 Headache, unspecified; M79.10 Myalgia, unspecified site; R61 Generalized hyperhidrosis; R09.3 Abnormal sputum; B34.9 Viral infection, unspecified; Z20.822 Contact with and (suspected) exposure to COVID-19
CPT/HCPCS: 0241U-QW; 99283-25

== ENCOUNTER 2023-05-29 15:15 | Emergency (ER) | payer OTHER ==
[2023-05-29 15:51] VITALS: BP 129/54; PULSE 86; RESP 18; TEMP 98.3; BMI 24.7
[2023-05-29] MEDS ORDERED: FLUORESCEIN NA 1 EA STRIP OU ONE (16:02)
[2023-05-29] MEDS ORDERED: TETRACAINE 0.5% HCL 0.6ML DROPPER.BOTTLE OU ONE (16:02)
[2023-05-29] MEDS ORDERED: TETRACAINE 0.5% OPHTH SOLN 2 ML BOTTLE ONE (16:08)
[2023-05-29] MEDS ORDERED: FLUORESCEIN NA 1 EA STRIP ONE (16:08)
[2023-05-29 16:26] LABS: BASO % 0.5 % (0-2.0); EOS % 1.4 % (0-4.5); HEMATOCRIT 40.8 % (32.4-45.2); HEMOGLOBIN 13.7 GM/dL (10.7-15.3); LYMPH % 19.9 % (8-40); MCH 33.4 pg (25.7-33.7); MCHC 33.6 g/dl (32.0-36.0); MEAN CELL VOLUME 99.5 fl (80-96); MEAN PLT VOLUME 8.4 fl (7.5-11.1); MONO % 6.8 % (3.8-10.2); NEUT % 71.4 % (42.8-82.8); PLATELET COUNT 313 10^3/uL (134-434); RDW 13.2 % (11.6-15.6); WHITE BLOOD COUNT 7.8 K/mm3 (4.0-10.0)
[2023-05-29] MEDS ORDERED: KETOROLAC TROMETHAMINE 30 MG/1 ML VIAL IM ONE (16:39)
[2023-05-29] MEDS ORDERED: KETOROLAC TROMETHAMINE 30 MG/1 ML VIAL ONE (16:43)
[2023-05-29 16:46] LABS: POTASSIUM 4.4 mmol/L (3.5-5.1)
[2023-05-29 16:48] LABS: ALBUMIN 3.5 g/dl (3.4-5.0); BLOOD UREA NITROGEN 11.4 mg/dL (7-18); CALCIUM 8.7 mg/dL (8.5-10.1); MAGNESIUM 2.1 mg/dL (1.8-2.4)
[2023-05-29 16:51] LABS: CREATININE 0.7 mg/dL (0.55-1.3)
[2023-05-29 16:53] LABS: BILIRUBIN,TOTAL 0.2 mg/dL (0.2-1); TOT PROT 7.2 g/dl (6.4-8.2)
== END 2023-05-29 17:15 | disposition home or self-care (01) ==
LOC: JERFT 15:15
PROC: 3E0233Z Introduction of Anti-inflammatory into Muscle, Percutaneous Approach (ICD-10-PCS; principal; 2023-05-29)
DX: T15.02XA Foreign body in cornea, left eye, initial encounter (principal); R20.2 Paresthesia of skin; R20.0 Anesthesia of skin; M79.602 Pain in left arm
CPT/HCPCS: 36415; 80053; 83735; 85025; 99284-25

== ENCOUNTER 2023-12-09 05:12 | Day surgery (SDC) | payer OTHER ==
[2023-12-02 11:35] VITALS: BMI 23.8
[2023-12-09] MEDS ORDERED: MIDAZOLAM HCL 2 MG/2 ML SINGLE DOSE VIAL ONE (14:20)
[2023-12-09] MEDS ORDERED: PROPOFOL 20 ML ONE (14:21)
[2023-12-09] MEDS ORDERED: FENTANYL CITRATE/PF 50 MCG/ML VIAL ONE (14:21)
[2023-12-09] MEDS ORDERED: DEXAMETHASONE SOD PHOSPHATE 4 MG/1 ML VIAL ONE (14:21)
[2023-12-09] MEDS ORDERED: ONDANSETRON 4 MG/2 ML VIAL ONE (14:21)
[2023-12-09] MEDS ORDERED: KETOROLAC TROMETHAMINE 30 MG/1 ML VIAL ONE (14:21)
[2023-12-09 15:09] VITALS: RESP 18; TEMP 97.8
[2023-12-09 16:31] VITALS: BP 112/61; PULSE 80
== END 2023-12-09 16:15 | disposition home or self-care (01) ==
LOC: JASU-SURG 05:12
PROVIDERS: ATTEND Urology
PROC: 0T7D8ZZ Dilation of Urethra, Via Natural or Artificial Opening Endoscopic (ICD-10-PCS; principal; 2023-12-09 15:00)
DX: N35.92 Unspecified urethral stricture, female (principal); R31.9 Hematuria, unspecified; N32.9 Bladder disorder, unspecified
CPT/HCPCS: 81025; 88305-TC

== ENCOUNTER 2024-12-01 13:43 | Observation (INO) | payer OTHER ==
[2024-12-01] MEDS ORDERED: MECLIZINE HCL 25 MG TABLET (FP) ONE (14:43)
[2024-12-01] MEDS ORDERED: METOCLOPRAMIDE HCL INJECTION 10 MG/2 ML VIAL ONE (14:43)
[2024-12-01] MEDS ORDERED: ACETAMINOPHEN INJECTION 100 ML ONE (14:43)
[2024-12-01] MEDS: ACETAMINOPHEN 1000 MG/100 ML BAG IVPB ONE (15:25)
[2024-12-01] MEDS: MECLIZINE HCL 25 MG TABLET (FP) PO ONE (15:25)
[2024-12-01] MEDS: METOCLOPRAMIDE HCL INJECTION 10 MG/2 ML VIAL IVPB ONE (15:26)
[2024-12-01 15:31] LABS: PH,URINE 5.5 (5.0-8.0); URINE APPEARANCE CLEAR; URINE BILIRUBIN NEGATIVE (NEGATIVE); URINE COLOR YELLOW; URINE GLUCOSE (UA) NEGATIVE (NEGATIVE); URINE KETONE 2+ (NEGATIVE); URINE LEUK ESTERASE NEGATIVE (NEGATIVE); URINE NITRITE NEGATIVE (NEGATIVE); URINE PROTEIN NEGATIVE (NEGATIVE); URINE UROBILINOGEN 0.2 mg/dL (0.2-1.0)
[2024-12-01 15:37] LABS: ABSOLUTE IMMATURE GRANULOCYTES 0.01 x10^3/uL (0.0-0.031); BASOPHILS # 0.03 x10^3/uL (0.01-0.08); EOSINOPHILS # 0.06 x10^3/uL (0.04-0.36); HEMATOCRIT 41.2 % (34.1-44.9); HEMOGLOBIN 13.6 g/dL (11.2-15.7); MEAN CELL VOLUME 98.1 fl (79.4-94.8); MEAN PLT VOLUME 10.6 fl (9.4-12.3); MONOCYTE # 0.53 x10^3/uL (0.24-0.86); MONOCYTE % 8.4 % (4.7-12.5); PLATELET COUNT # 223 x10^3/uL (182-369); RDW 12.8 % (12.1-16.5)
[2024-12-01 15:41] LABS: INR 1.01 (0.83-1.09); PROTHROMBIN TIME (PATIENT) 11.1 SEC (9.7-13.0)
[2024-12-01 15:43] LABS: ACTIVATED PTT 29.6 SECONDS (25.2-36.5)
[2024-12-01 15:58] LABS: CHLORIDE 104 mmol/L (98-107); POTASSIUM 3.7 mmol/L (3.5-5.1); SODIUM 137 mmol/L (136-145)
[2024-12-01 16:00] LABS: ANION GAP 9 mmol/L (4-13); CALCIUM 8.9 mg/dL (8.5-10.1); CO2 24 mmol/L (21-32)
[2024-12-01 16:02] LABS: BLOOD UREA NITROGEN 11.4 mg/dL (7-18); GLUCOSE,RANDOM 86 mg/dL (74-106)
[2024-12-01 16:04] LABS: CREATININE 0.6 mg/dL (0.55-1.3); SGOT/AST 16 U/L (15-37); SGPT/ALT 18 U/L (13-61)
[2024-12-01 16:05] LABS: CHOLESTEROL 203 mg/dL (50-200); TOT PROT 7.3 g/dl (6.4-8.2)
[2024-12-01 16:06] LABS: LDL CHOLESTEROL (ONLY SJRH) 127 mg/dL (5-100)
[2024-12-01 16:07] LABS: BILIRUBIN,TOTAL 0.4 mg/dL (0.2-1)
[2024-12-01 16:08] LABS: ALK PHOS 65 U/L (45-117); HDL CHOLESTEROL 63 mg/dL (40-60)
[2024-12-01] MEDS: SODIUM CHLORIDE 0.9% 500 ML INFUS.BAG IV ONE (16:09)
[2024-12-02 03:14] VITALS: BP 97/53; PULSE 80; RESP 18; TEMP 98.2; BMI 24.8
== END 2024-12-02 02:50 | disposition left against medical advice (07) ==
LOC: JER 13:43 → JERBED 17:12 → J4W 12-02 00:40
PROC: 3E033NZ Introduction of Analgesics, Hypnotics, Sedatives into Peripheral Vein, Percutaneous Approach (ICD-10-PCS; principal; 2024-12-01)
PROC: 3E033GC Introduction of Other Therapeutic Substance into Peripheral Vein, Percutaneous Approach (ICD-10-PCS; 2024-12-01)
PROC: 3E0337Z Introduction of Electrolytic and Water Balance Substance into Peripheral Vein, Percutaneous Approach (ICD-10-PCS; 2024-12-01)
DX: G43.109 Migraine with aura, not intractable, without status migrainosus (principal); F43.9 Reaction to severe stress, unspecified; R20.0 Anesthesia of skin; R53.1 Weakness
CPT/HCPCS: 36415; 70450-TC; 70496-TC; 70498-TC; 70553-TC; 80053; 80061; 81003; 82550; 82553; 82962; 83036; 84484; 85025; 85610; 85730; 86850; 86900; 86901; 93005; 93010; 96374; 96375; 99285-25; G0378; J0131